=== PATIENT | female | born 1990 | race African-American/Black ===

== ENCOUNTER 2019-07-26 12:59 | Outpatient (CLI) | payer OTHER, SELFPAY ==
--- NOTE | 2019-07-30 12:20 | WPDHOLTEREM ---
Holter/Event Monitor Holter/Event Monitor Date of procedure: 07/26/19 Procedure Type: 48 hour holter monitor Indications: Palpitations Conclusion: 1. 48 hour holter monitor on 07/26/19. 2. Underlying rhythm is sinus rhythm. HR range 44-194 bpm; average HR 73 bpm. The fastest HR at 194 bpmis probably sinus or atrial tachycardia with significant artifact was at 16:06 3. There are 13 premature supraventricular complexes. No supraventricular tachycardia. 4. There are 14 premature ventricular complexes. No ventricular tachycardia. 5. No sinoatrial or atrioventricular blocks. No significant pauses greater than 2 seconds. 6. Patient reports chest tightness, throat tightness, palpitations and chest pain which demonstrate Sinus rhythm, HR range 69-136 bpm.
== END 2019-07-26 13:00 | disposition home or self-care (01) ==
LOC: ANHCARD 13:01
PROVIDERS: Visit Provider Internal Medicine Cardiovascular Disease
DX: R00.2 Palpitations (principal)
CPT/HCPCS: 93225; 93226

== ENCOUNTER 2019-08-22 15:46 | Outpatient (RCR) | payer OTHER, SELFPAY ==
[2019-08-20 17:31] LABS: Beta HCG Quantitative 60.53 mIU/ML
[2019-08-22] MEDS: RHO(D) IMMUNE GLOBULIN 300 MCG SYRINGE IM (16:21)
== END 2019-11-18 23:59 | disposition home or self-care (01) ==
LOC: ANHLAB 15:46
PROVIDERS: Visit Provider Obstetrics & Gynecology
DX: O20.0 Threatened abortion (principal); O36.0130 Maternal care for anti-D [Rh] antibodies, third trimester, not applicable or unspecified; Z36.89 Encounter for other specified antenatal screening; Z3A.00 Weeks of gestation of pregnancy not specified
CPT/HCPCS: 36415; 84702; 85461; 90384; 96372; J2790

== ENCOUNTER → 2020-02-18 09:04 | Outpatient (CLI) | payer OTHER, SELFPAY ==
--- NOTE | ~2020-02-18 | XR_ITS ---
XR UGIAC wo kub DATE: 02/18/2020 09:54 INDICATION: Gastroesophageal reflux. Abdominal bloating and pressure. TECHNIQUE: Air-contrast upper gastrointestinal series 1.2 minutes fluoroscopy time 9.602 DAP COMPARISON: None FINDINGS: There is normal deglutition and esophageal peristalsis. No stricture, mucosal fold thickeni ng, erosion, ulceration or intraluminal mass lesion or diverticulum of the esophagus or stomach or du odenum is detected. No hiatal hernia is observed. No gastroesophageal reflux was noted. The proximal small bowel mucosal pattern is normal. IMPRESSION: Normal examination Reviewed, dictated and finalized at Location A. Reviewed, dictated and finalized at location B. PUNCH PRESS OPERATOR IMPRESSION: Normal examination
== END ==
PROVIDERS: PCP Emergency Medicine; Visit Provider Emergency Medicine
DX: K21.9 Gastro-esophageal reflux disease without esophagitis (principal)
CPT/HCPCS: 74246

== ENCOUNTER 2021-09-19 10:44 | Emergency (ER) | payer OTHER, SELFPAY ==
[2021-09-19 10:52] VITALS: BP 133/85; PULSE 66; RESP 16; TEMP 36.3; O2SAT 100
--- NOTE | 2021-09-19 11:30 | ED.EYEPROB ---
HPI - Eye Problem General Chief complaint: Eye Problems Stated complaint: Eye Pain Time Seen by Provider: 09/19/21 11:23 Source: patient Mode of arrival: ambulatory Limitations: no limitations History of Present Illness HPI Narrative: Patient presents today complaining of bilateral eye redness, crusting, and swelling with some occasional watering. Symptoms began yesterday with the swelling starting today. Denies itching or pain. She is also had some allergy symptoms to include congestion and rhinorrhea recently for which she takes Zyrtec. Denies vision changes. She has tried no grxt-oaf-rxfdowm treatment for her eye symptoms prior to arrival. Related Data Home Medications Medication Instructions Recorded Confirmed levonorgestrel-ethinyl estradiol 1 tablet PO DAILY 07/24/19 09/19/21 0.1 mg-20 mcg tablet (Lutera (28)) Allergies Allergy/AdvReac Type Severity Reaction Status Date / Time No Known Allergies Allergy Unknown Verified 09/19/21 10:45 Review of Systems Review of Systems: CONSTITUTIONAL: Denies body aches, fever, chills, or sweats. EYES: Denies visual changes. +Bilateral eyelid swelling, redness, watering ENT: Denies rhinorrhea, congestion, sore throat, or otalgia. CARDIOVASCULAR: Denies chest pain, palpitations, or edema. RESPIRATORY: Denies cough or dyspnea. GASTROINTESTINAL: Denies abdominal pain, nausea, vomiting, or diarrhea. GENITOURINARY: Denies dysuria or hematuria. SKIN: Denies rash, itching, or wounds. MUSCULOSKELETAL: Denies back pain, joint pain, or myalgia. NEUROLOGIC: Denies headache, numbness, tingling, or weakness. PSYCH: Denies depression or anxiety. PMFSH Comments At time of signature, I have reviewed and agree with nursing past medical, surgical, social and family history unless otherwise noted. Please see nursing chart for further information. There is no relevant family history pertinent to the presenting complaint Exam Narrative: GENERAL: Well-appearing, well-nourished, and in no acute distress. HEAD: Normocephalic, atraumatic. EYES: EOMI. PERRL. Bilateral injected conjunctiva. Bilateral Upper and lower eyelid swelling. Lashes normal. Slight watery discharge bilaterally. ENT: Mucous membranes pink and moist. Nares Congested. NECK: Normal AROM. CHEST: No respiratory distress. EXTREMITIES: Normal range of motion. No edema. SKIN: Warm, dry, no rash. Capillary refill normal. Normal skin turgor. NEURO: No focal deficits. Alert and oriented x3. Gait steady. PSYCH: Normal affect. No signs of depression or anxiety. Course Course Level of Care: Express Care Visit Vital Signs Vital signs: Vital Signs Temperature 97.4 F L 09/19/21 10:52 Pulse Rate 66 09/19/21 10:52 Respiratory Rate 16 09/19/21 10:52 Blood Pressure 133/85 09/19/21 10:52 Pulse Oximetry 100 09/19/21 10:52 Oxygen Delivery Room Air 09/19/21 10:52 Temperature 97.4 F L 09/19/21 10:52 Pulse Rate 66 09/19/21 10:52 Respiratory Rate 16 09/19/21 10:52 Blood Pressure 133/85 09/19/21 10:52 Pulse Oximetry 100 09/19/21 10:52 Oxygen Delivery Room Air 09/19/21 10:52 Reviewed. Pt has been instructed to follow up with her PCP regarding her elevated blood pressure today. MDM - Eye Problem Differential Diagnosis Differential diagnosis: Likely corneal abrasion, conjunctivitis and periorbital cellulitis Critical Care Time Critical Care Time Critical Care Time: No Discharge Plan Discharge Clinical Impression: Acute allergic conjunctivitis of both eyes Patient Disposition: Home, Self-Care Condition: Stable Instructions: Conjunctivitis (ED) Additional Instructions: Your symptoms are likely due to pinkeye due to allergies. Please use an antihistamine eyedrop such as Zaditor as directed on the box. Use a cool compress on your eyes to help with swelling of the eyelids. Continue your Zyrtec. Follow-up with your doctor in 1 week if symptoms are not improving. Pr
== END 2021-09-19 11:41 | disposition home or self-care (01) ==
PROVIDERS: Emergency Provider Nurse Practitioner; PCP Emergency Medicine
DX: H10.13 Acute atopic conjunctivitis, bilateral (principal)
CPT/HCPCS: 99212; G0463

== ENCOUNTER 2022-03-25 17:22 | Outpatient (CLI) | payer OTHER, SELFPAY ==
[2022-03-26] MEDS: RHO(D) IMMUNE GLOBULIN 300 MCG/2 ML SYRINGE IM (07:32)
== END 2022-03-25 17:23 | disposition home or self-care (01) ==
LOC: ANHLAB 17:25
PROVIDERS: PCP Emergency Medicine; Visit Provider Obstetrics & Gynecology
DX: O20.0 Threatened abortion (principal)
CPT/HCPCS: 36415; 85461; 86850; 86900; 86901; 90384; 96372; J2790

== ENCOUNTER 2023-02-10 13:51 | Outpatient (CLI) | payer OTHER, SELFPAY | END 2023-02-10 13:52 | disposition home or self-care (01) | LOC: ANHLAB 13:56 | PROVIDERS: PCP Emergency Medicine; Visit Provider Obstetrics & Gynecology | DX: O20.0 Threatened abortion (principal); Z3A.00 Weeks of gestation of pregnancy not specified | CPT/HCPCS: 36415; 84702 ==

== ENCOUNTER 2023-02-10 13:58 | Outpatient (RCR) | payer OTHER, SELFPAY ==
[2023-02-10] MEDS: RHO(D) IMMUNE GLOBULIN 300 MCG/2 ML SYRINGE IM (19:14)
== END 2023-05-11 23:59 | disposition home or self-care (01) ==
LOC: ANHLAB 13:58
PROVIDERS: PCP Emergency Medicine; Visit Provider Obstetrics & Gynecology
DX: O20.0 Threatened abortion (principal); Z29.13 Encounter for prophylactic Rho(D) immune globulin; O36.0190 Maternal care for anti-D [Rh] antibodies, unspecified trimester, not applicable or unspecified; Z3A.00 Weeks of gestation of pregnancy not specified
CPT/HCPCS: 36415; 84702; 85461; 86850; 86900; 86901; 90384; 96372; J2790

== ENCOUNTER 2023-02-12 13:17 | Outpatient (CLI) | payer OTHER, SELFPAY | END 2023-02-12 13:18 | disposition home or self-care (01) | LOC: ANHLAB 13:20 | PROVIDERS: PCP Emergency Medicine; Visit Provider Obstetrics & Gynecology | DX: O20.0 Threatened abortion (principal); Z3A.00 Weeks of gestation of pregnancy not specified | CPT/HCPCS: 36415; 84702 ==

== ENCOUNTER 2023-03-22 01:57 | Day surgery (SDC) | payer OTHER, SELFPAY ==
[2023-03-21 11:44] VITALS: BMI 25.4
--- NOTE | 2023-03-21 11:48 | PC.NURSE ---
Report to the Outpatient Waiting Room, entrance under the green pavilion located off [facility], at time 1200 on date 03/22/23. Planned Procedure Time: 1400. Time changes happen often and if your time is changed the preop area will call you the afternoon before. - You and your visitor will be asked to self-screen and do not enter if you have any COVID symptoms. - A mask is optional within the hospital at this time. Patients may have clear liquids (water, carbonated beverages, clear teas, apple juice) until 3 hours prior to surgery with a maximum of 20 ounces. - No food from midnight until time of surgery Take the following medications with a SIP of water the morning of surgery: N/A DO NOT STOP ANY OF YOUR OTHER PRESCRIPTION MEDICATIONS PRIOR TO SURGERY ?EXCEPT THE FOLLOWING Medications to discontinue per physician: N/A Date to take last dose: N/A Please no make-up, nail swedish, hairspray, perfume, deodorant, or body powder the day of surgery. No jewelry (including any body piercings) or valuables the day of surgery, leave them at home. Please take a shower or bath the night before, or the morning of, surgery with an antibacterial soap. Wear comfortable, loose fitting clothing. Children are encouraged to wear pajamas. - Jewelry must be removed prior to entering the operating room. Rings and piercings that are not removed may be cut off. - The hospital will not accept responsibility for valuables. - Please leave all valuables, including medications, at home the day of surgery. If you are going home after surgery, a licensed otr flatbed driver must drive you home. - NO public transportation without another adult if you receive anesthesia. - We recommend that an adult stay with you for 24 hours following discharge. - We also recommend that you do not drive, make important decision, drink alcoholic beverages, or take any drugs that were not prescribed by your health care provider for at least 24 hours after your discharge time. Follow any additional instructions given to you from your surgeon. If you or anyone in your household have experienced Covid symptoms in the past week, please notify your surgeon or the nurse liaison at the phone number below for possible testing. Telephone instructions given to PT - GREGORY WALDROP and asked if any additional questions and then verbalized understanding. Patient advised to call surgeon office or pre surgery nurse liaison [phone] if any additional questions.
[2023-03-22 13:09] VITALS: BP 118/77; PULSE 72; RESP 14; TEMP 37; O2SAT 98
[2023-03-22] MEDS: ACETAMINOPHEN 500 MG TABLET 1000 MG PO (13:13)
[2023-03-22] MEDS: LACTATED RINGERS 1,000 ML 30 ML IV CONT (13:13)
--- NOTE | 2023-03-22 13:24 | P.PNAN_ITS ---
Anes - Initial Pre Proc Eval Procedure: Operation Date: 03/22/23 14:00 Proposed Procedures p Suction Dilation and Curettage - Dm Roche MD Date/Time: 03/22/23 13:24 Surgeon: Dm Roche MD Pre Op Diagnosis: Missed AB Patient Data Age: 32 Gender: F Height: 1.52 m Weight: 62.8 kg Last Vital Signs Temp 37.0 C 03/22/23 13:09 Pulse 72 03/22/23 13:09 Resp 14 03/22/23 13:09 BP 118/77 03/22/23 13:09 Pulse Ox 98 03/22/23 13:09 O2 Del Method Room Air 03/22/23 13:09 Allergies Allergy/AdvReac Type Severity Reaction Status Date / Time No Known Allergies Allergy Unknown Verified 03/22/23 13:13 Home Medications Medication Instructions Recorded Confirmed Type No Home Medications 03/21/23 03/21/23 History Patient hx anesthesia problems: none Family hx anesthesia problems: none Results Review: All pre-operative results and documents have been reviewed as part of the pre- operative evaluation. [facility] Past Medical History Medical History (Updated 03/22/23 @ 13:24 by David Ruiz MD) BELLA on CPAP Social History Social History Smoking status: Never smoker Alcohol use details: WHEN NOT Substance use: never Substance use type: does not use Living arrangements: with family Spiritual care concerns: No Anes - Eval Final PreProcedure Day of Procedure 03/22/23 13:24 Patient weight: overweight Heart: regular rate and rhythm Lungs: clear to auscultation Airway: Mallampati scale class II Neurological: alert and oriented Last oral intake: >/= 8 hours ASA classification: II Emergent: no Anesthetic plan: proceed Anesthesia type and monitoring: general GIVS and standard monitoring Results Review: All pre-operative results and documents have been reviewed as part of the pre- operative evaluation. Informed Consent: The patient's anesthetic plan and its attendant risks and benefits were discussed with the patient/family/POA. Questions were solicited and answers provided to the satisfaction of the patient/family/POA.
--- NOTE | 2023-03-22 14:05 | PM.IMHP ---
H&P: HPI History of Present Illness Date/Time: 03/22/23 14:05 Chief Complaint: missed miscarriage Narrative: Patient presents for suction D&C indicated for missed miscarriage at 6 weeks. Patient was seen in office at 5 weeks gestation, embryo with +FHR was seen. On repeat US at 8 weeks, there was a size date discrepancy with FHR visualized, diagnosed of missed miscarriage. She denies heavy bleeding or cramping. Expectant vs medical vs surgical management was discussed with the patient and she elects for suction D&C with genetic evaluation of POC. No fevers, chills, abdominal pain, nausea, vomiting or diarrhea today. Review of Systems Review of Systems: All systems reviewed & are unremarkable except as noted in HPI and below PMFSH Past Medical History Medical History BELLA on CPAP Social History Social History Smoking status: Never smoker Alcohol use details: WHEN NOT Substance use: never Substance use type: does not use Living arrangements: with family Spiritual care concerns: No Meds Home Medications and Allergies Home Medications Medication Instructions Recorded Confirmed Type No Home Medications 03/21/23 03/21/23 History Allergies Allergy/AdvReac Type Severity Reaction Status Date / Time No Known Allergies Allergy Unknown Verified 03/22/23 13:13 Vital Signs Vital Signs - 24 hr 03/22/23 13:09 Temperature 98.6 F Pulse Rate 72 Respiratory Rate 14 Blood Pressure 118/77 Pulse Oximetry 98 Oxygen Delivery Room Air Exam Const: General: comfortable and no acute distress Eyes: General: appearance normal, both eyes and all related structures Neck: Neck: supple Resp: Effort & Inspection: normal respiratory effort Cardio: Rate: regular rate Skin: General skin exam: normal color Extrem: General: normal to inspection Psych: Mental Status: mental status grossly normal Assessment and Plan Assessment and plan (1) Missed : Code(s): O02.1 - Missed Status: Acute Assessment and Plan: diagnosed by size-date discrepancy, no FHR seen after previously visualized no cramping or bleeding expectant vs medical vs surgical management discussed with patient, r/b/a discussed and patient desires to proceed with suction D&C will send genetic analysis of POC
--- NOTE | 2023-03-22 14:08 | SUR.PREOP ---
per dr ortiz. pt does NOT need rhogam for this visit today.
--- NOTE | 2023-03-22 14:13 | WPDHPUPDATE1 ---
History and Physical Update Update Date/Time: 03/22/23 14:13 History and Physical has been reviewed, including an updated exam of the patient. There are NO changes in the patient's condition. Risks, benefits, and alternatives have been discussed and questions answered. Patient agrees to proceed with procedure.
[2023-03-22] MEDS: LIDO 1%/EPINEPHRINE 1:100,000 50 ML VIAL 10 ML INFILTRATE (14:18)
[2023-03-22 14:50] VITALS: BP 90/48; PULSE 103; RESP 20; O2SAT 98
--- NOTE | 2023-03-22 15:18 | W.PM.PROC2 ---
Procedure Note - Detailed Date of Procedure 03/22/23 Pre-op Diagnosis Missed AB Post-op Diagnosis Same Procedure Performed suction D&C Surgeon Dm Roche MD Anesthesia MAC Indications missed miscarriage at 6 weeks gestation Description of Procedure The patient was then taken to the operating room with IVFs running. She was placed in the dorsal supine position where she received MAC anesthesia without any difficulty.?? The patient was placed in the dorsal lithotomy position using j carlos stirrups. EUA revealed the above findings. She was then prepped and draped in a normal sterile fashion. A time-out procedure was performed and all members of the OR team agreed on the patient and plan. A bivalved speculum was then inserted into the patient's vagina.? The anterior lip of the cervix was grasped with a single tooth tenaculum. The cervical os was dilated using linh dilators to accommodate a 9mm curette.? The suction curette was tested outside the patient and found to be working properly.? The curette was then advanced into the intrauterine cavity and circumferentially removed.? All products of conception were removed until little tissue was seen passing through the tubing.? A sharp curettage was then performed until a gritty texture was noted.? The specimen was sent to pathology.? The single tooth tenaculum was removed from the anterior lip of the cervix and was hemostatic.? The bivalve speculum was removed.? The patient tolerated the procedure well.? Sponge, lap, needle, and instrument counts were correct Estimated Blood Loss 50 Pathology Yes Complications No immediate complications Condition Stable
[2023-03-22 15:20] VITALS: BP 91/53; PULSE 72; RESP 20; O2SAT 100
[2023-03-22] MEDS: DOXYCYCLINE HYCLATE 100 MG TABLET PO (15:35)
[2023-03-22 15:50] VITALS: BP 114/71; PULSE 67; RESP 20
[2023-03-22 16:10] VITALS: BP 123/68; PULSE 64; RESP 20
== END 2023-03-22 16:15 | disposition home or self-care (01) ==
PROVIDERS: PCP Nurse Practitioner Family; Visit Provider Obstetrics & Gynecology
PROC: (CPT 59820; principal; 2023-03-22 14:00)
DX: O02.1 Missed abortion (principal); G47.33 Obstructive sleep apnea (adult) (pediatric); Z99.89 Dependence on other enabling machines and devices
CPT/HCPCS: 59820; 36415; 85461; 86850; 86880; 86900; 86901; 86902; 88264; 88305; A9270; J1100; J2250; J2405; J2704; J3010; J7120

== ENCOUNTER 2023-04-29 11:07 | Outpatient (CLI) | payer OTHER, SELFPAY ==
--- NOTE | ~2023-04-29 | MR_ITS ---
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 TECHNIQUE: Magnetic resonance imaging (MRI) of the brain, brainstem, and internal auditory canals was performed without and with 12 mL MultiHance intravenous contrast. COMPARISON: None. FINDINGS: There is no intracranial hemorrhage, acute infarction, or abnormal intracranial mass lesion . The ventricles are normal in size. The paranasal sinuses are clear. There orbits are normal. The ma stoid air cells are normal. The internal auditory canals, inner ears, and tympanic cavities are isai l. IMPRESSION: 1. Normal brain. Reviewed, dictated and finalized at location A. IMPRESSION: 1. Normal brain.
== END 2023-04-29 11:08 ==
LOC: MICIMG 11:10
PROVIDERS: PCP Nurse Practitioner Family
DX: G47.419 Narcolepsy without cataplexy (principal)
CPT/HCPCS: 70553; A9577

== ENCOUNTER 2023-07-30 12:30 | Outpatient (CLI) | payer OTHER, SELFPAY | END 2023-07-30 12:31 | disposition home or self-care (01) | LOC: ANHLAB 12:32 | PROVIDERS: PCP Nurse Practitioner Family; Visit Provider Obstetrics & Gynecology | DX: N91.2 Amenorrhea, unspecified (principal) | CPT/HCPCS: 36415; 84702 ==

== ENCOUNTER 2024-01-10 18:33 | Outpatient (RCR) | payer OTHER, SELFPAY ==
[2024-01-09 12:51] LABS: Hematocrit 35.5 % (37.0-47.0); Hemoglobin 12.3 g/dL (12.0-15.0)
[2024-01-09 13:02] LABS: Glucose 1 Hour PP 50gm Dose 114 mg/dL
[2024-01-09 13:43] LABS: HIV 1/2 Ab P24 Ag Result Negative (Negative)
[2024-01-10] MEDS: RHO(D) IMMUNE GLOBULIN 300 MCG/2 ML SYRINGE IM (19:35)
== END 2024-04-08 23:59 | disposition home or self-care (01) ==
LOC: ANHLAB 18:33
PROVIDERS: Visit Provider Obstetrics & Gynecology
DX: O36.0130 Maternal care for anti-D [Rh] antibodies, third trimester, not applicable or unspecified (principal); Z36.89 Encounter for other specified antenatal screening
CPT/HCPCS: 36415; 82947; 85014; 85018; 85461; 86703; 86850; 86900; 86901; 90384; 96372; G0432; J2790

== ENCOUNTER 2024-04-07 19:14 | Inpatient (IN) | payer OTHER, SELFPAY ==
[2024-04-07] VITALS (73 sets, daily range): BP systolic 73–161; BP diastolic 30–95; PULSE 69–125; O2SAT 78–100; BMI 32.3
--- OUTSIDE RECORDS SUMMARY | 2024-04-07 19:26 | XMS_ITS | Clinical Summary ---
Author Organization [facility] Address [facility] [place] [address] Care Team Providers Care Mail Clerk Bills Name Role Phone Wally Kumar MD Primary Care Provider [phone] Allergies No known active allergies Medications Lessina 0.1-20 mg-mcg per tablet TK 1 T PO QD 03/20/2019 Active Active Problems Problem Noted Date Diagnosed Date Poor growth affecting management of mother in third trimester 12/25/2017 Overview (01/16/2018): 1. IUGR- -previously counseled regarding potential etiology and risks of IUGR - Twice weekly testing with NST/BPP - Weekly UA doppler - EFW every 3 weeks with MFM co-managed visit -Timing of delivery is dependent on gestational age, doppler studies and testing and will be decided as the progresses. In general, if there has been reassuring testing and interval growth above the 5th percentile we advocate for delivery between 38 -39 weeks. Maternal risk factors, growth below the 5th percentile, abnormal dopplers, oligohydramnios will decrease the gestational age recommended for delivery between 34-37 weeks. Discuss further after next growth. 01/16: Patient with appropriate interval growth today at 11th percentile, but this is only 1 growth ultrasound. Counseled for continuation of twice weekly testing and for delivery at 39 wee Assessment & Plan (01/16/2018 8:59 AM ROOF FITTER): Patient with appropriate interval growth today at 11th percentile, but this is only 1 growth ultrasound. Counseled for continuation of twice weekly testing and for delivery at 39 weeks Family history of sickle cell anemia 12/25/2017 Overview (12/26/2017): -FOB believes he is a carrier, but pt's Hgb Electrophoresis was normal Supervision of high risk in third trim bc 12/01/2017 Overview (01/16/2018): -Per Dr. Brown -Patient states that she passed her 3hr GTT Resolved Problems Problem Noted Date Diagnosed Date Resolved Date Microcephaly of fetus, fetus 1 12/02/2017 01/16/2018 Surgical History Surgery Date Site/Laterality Comments DILATION AND CURETTAGE, DIAGNOSTIC / THERAPEUTIC 02/15/2016 - 02/13/2017 [facility] Medical History Medical History Date Comments TB lung, latent Social History Tobacco Use Types Packs/Day Years Used Date Smoking Tobacco: Former Smokeless Tobacco: Never Comments:Quit this Alcohol Use Standard Drinks/Week Comments Yes 0 (1 standard drink = 0.6 oz pur e alcohol) sociially Personal Safety Answer Date Recorded Getting School Help Needed Not on file 04/30 Comments No Sex and Gender Information Value Date Recorded Sex Assigned at Not on file Legal Sex Female 11:26 AM CDT Gender Identity Not on file Sexual Orientation Not on file Obstetrics History Para Term AB IAB SAB Ectopic Multiple Livin g Live Births 2 0 0 1 1 Date Outcome GA Total Labor Labor/2nd/3rd Weight Sex Type Anes PTL Edith A1 A5 Name Clin 2017 SAB Last Filed Vital Signs Vital Sign Reading Time Taken Comments Blood Pressure 139/95 07/12/2019 4:09 PM CDT Pulse 67 07/12/2019 4:09 PM CDT Temperature 36.8 C (98.2 F) 07/12/2019 4:09 PM CDT Respiratory Rate 18 07/12/2019 4:09 PM CDT Oxygen Saturation 99% 07/12/2019 4:09 PM CDT Inhaled Oxygen Concentration - - Weight 54.2 kg (119 lb 6.4 oz) 07/12/2019 4:09 P M CDT Height - - Body Mass Index - - Plan of Treatment Not on file Insurance [facility] HMO/PPO Address: [address] [place] [address] CHOICE PLUS [facility] HMO/PPO Address: [address] [place] [address] Care Teams Mail Clerk Bills Relationship Specialty Start Date End Date Wally Kumar MD [address] [place] [address] PCP - General Family Medicine 04/26/19
--- OUTSIDE RECORDS SUMMARY | 2024-04-07 19:26 | XMS_ITS | Clinical Summary ---
Author Organization [facility] Address [address] [place] [address] Care Team Providers Care Dietetic Aide Name Role Phone Wally Kumar MD Primary Care Provider [phone] Source Comments [facility],non-owned Affiliates and Associated Physician Practices is amultiple site organization consisting of ambulatory clinics and hospital sitesin [place], [place], [place]. This disclosure is being madepursuant to the Care Everywhere program and may not contain all information available regarding this patient. Last updated 17.[facility] Allergies No known active allergies Medications * Be aware that medications may not be up to date on this document. Alwaysverify current medications with the patient. Medication Sig Dispensed Refills Start Date End Date Status fluticasone propionate (FLONASE) 50 MCG/ACT nasal spray Gore 2 sprays into the nose every 24 hours 07/22/2020 Active LESSINA-28 0.1-20 MG-MCG tablet Take 1 tablet by mouth once daily 01/27/2021 Active omeprazole (PRILOSEC) 20 MG capsule Take 1 (one) capsule by mouth 2 times daily, before breakfast and supper 30 capsule 3 02/18/2021 Active Active Problems Problem Noted Date Diagnosed Date Family history of sickle cell anemia 12/25/2017 Overview (02/18/2021): -FOB believes he is a carrier, but pt's Hgb Electrophoresis was normal Atypical squamous cells of u ndetermined significance (ASCUS) on Papanicolaou smear of cervix 07/21/2017 Immunizations Name Administration Dates Next Due INFLUENZA VACCINE, QUADR. (F LUZONE; FLULAVAL; FLUARIX; AFLURIA QUADRIVALENT; 6MO+), 0.5 ML (IIV4) 12/10/2017 TDAP (7yrs+) 12/10/2017 Family History Medical History Relation Name Comments Hypertension Father Relation Name Status Comments Brother Alive Father Alive Mother Alive Social History Tobacco Use Types Packs/Day Years Used Date Smoking Tobacco: Never Smokeless Tobacco: Never Alcohol Use Standard Drinks/Week Comments Yes 0 (1 standard drink = 0.6 oz pur e alcohol) occasional Sex and Gender Information Value Date Recorded Sex Assigned at Not on file Gender Identity Not on file Sexual Orientation Not on file Last Filed Vital Signs Vital Sign Reading Time Taken Comments Blood Pressure 127/86 02/18/2021 8:10 AM SAIL FINISHER HAND Pulse 77 02/18/2021 8:10 AM SAIL FINISHER HAND Temperature 37.9 C (100.3 F) 01/02/2021 4:50 PM SAIL FINISHER HAND Respiratory Rate 18 02/18/2021 8:10 AM SAIL FINISHER HAND Oxygen Saturation 100% 02/18/2021 8:10 AM SAIL FINISHER HAND Inhaled Oxygen Concentration - - Weight 60.3 kg (133 lb) 02/18/2021 8:10 AM SAIL FINISHER HAND Height 152.4 cm (5') 02/18/2021 8:10 AM SAIL FINISHER HAND Body Mass Index 25.97 02/18/2021 8:10 AM SAIL FINISHER HAND Plan of Treatment Health Maintenance Due Date Last Done Comments HIV SCREENING 2004 HEPATITIS C SCREENING 07/12/2007 HEPATITIS B VACCINE (1 of 3 - 19+ 3-dose series) 2008 PAP SMEAR 05/29/2023 05/28/2020, 05/28/2020, 05/28/2020 COVID-19 VACCINE (3 - 2023-2 5 season) 2023 05/20/2020, 04/28/2020 INFLUENZA VACCINE (#1) 2023 0, 12/10/2017 DEPRESSION SCREENING 02/15/2024 DTAP/TDAP/TD VACCINES (2 - T d or Tdap) 12/11/2027 12/10/2017 ZOSTER VACCINE (1 of 2) 07/17/2039 HIB VACCINE Aged Out No longer eligi ble based on patient's age to complete this topic HPV VACCINE Aged Out No longer eligi ble based on patient's age to complete this topic MENINGOCOCCAL (Group B) VACCINE Aged Out No longer eligible b ased on patient's age to complete this topic MENINGOCOCCAL VACCINE Aged Out No juaquin sav[place] eligible based on patient's age to complete this topic PNEUMOCOCCAL VACCINE Aged Out No long er eligible based on patient's age to complete this topic Care Teams Dietetic Aide Relationship Specialty Start Date End Date Wally Kumar MD PCP - General 02/10/18
--- OUTSIDE RECORDS SUMMARY | 2024-04-07 19:26 | XMS_ITS | Data Portability ---
Author Organization [facility] [place] Address [address] [place] [address] [place] [address] Care Team Providers Care Time Stamp Assembler Name Role Phone TINA [place] Primary Care Provider [phone] SIVA PIMENTEL Primary Care Provider Assessment No assessment recorded. Plan of Treatment Reminders Order Date Submit Date Provider Last Modified By Organization Details Last Modified Time Details Appointments INDUCTION 2024 05:00A Nia RODRIGUEZ MD Not available Not available Not available Lab None recorded. Referral None recorded. Procedures None recorded. Surgeries None recorded. Imaging non-stres s test 2024 025 [email or web address] [address], [address], [place], [address], 04/02/2024 11:17:38 Medication Orders None recorded. Patient TargetsNo targets recorded. Patient InstructionsNo instructions recorded. Reason for Referral None Reported. Results Created Date Observation Date Name Description Value Unit Range Abnormal Flag Note LastModifiedBy Organization Detail LastModifiedTime 03/06/1903/06/2024 CULTU RE: GROUP B STREP SCREE N, REFLE X SUSCE PTIBI LITY result report SEE RESULT S BELOW Test: Cultu re: Group B Strep , Refle x Susce ptibi lity ([facility] ) Speci men Sourc e: Vagin a/Rec vilma Speci men Type: Vagin al/Re ctal Speci men Date: 2024 1402 Resul t Date: 2024 1357 Resul t Statu s: Final resul t Abnor mal: No Resul ting Lab: [facility] [address] [facility] [address] Tel: CULTU RE ----- ----- ----- --- No Group B strep isola deejay at 2 days (akil ctive broth enhan cemen t) Not Available [facility] (Lab) [address], [place], [address], 03/09/2024 15:00:47 04/02/19 25 04/02/2024 non-s tress test No observ ation record ed. [id number] [facility] [address], [place], [address], 04/02/2024 11:14:01 Result Notes None recorded. Problems Name Problem SNOMED Code Status Onset Date Resolution Date Notes Provider Name and Address Organization Details Recorded Time finding Completed 201705/28/2020 Matern care for oth or susp poor fetl grth, third tri, unsp;Rec orded Elsewher e: No [facility] S ource: EHR Technician Automatic sari: N Practi ce ID: 0001 Mason lable Time: 09:00:00 AM Chen Garcia MD [address], [place], [address], [facility] 14:09:[address] Concept Completed 201905/28/2020 Encntr for stage technician exam (general ) (routine ) w/o abn findings ;Recorde d Elsewher e: No Locat ion: [facility] S ource: EHR Technician Automatic sari: N Practi ce ID: 0001 Mason lable Time: 08:15:00 AM hCen Garcia MD [address], [place], [address], [facility] 14:10:51 Gestatio n period, 29 weeks [id number] Completed 201705/28/2020 29 weeks gestatio n of pregnanc y;Record ed Elsewher e: No Locat ion: [facility] S ource: EHR Technician Automatic sari: N Practi ce ID: 0001 Mason lable Time: 09:45:00 AM Chen Garcia MD [address], [place], [address], [facility] 14:09:55 Infectio n screenin g Completed 201605/28/2020 Encounte r for screenin g for oth infec/pa rastc diseases ;Recorde d Elsewher e: No [facility] S ource: EHR Technician Automatic sari: N Practi ce ID: 0001 Mason lable Time: 11:00:00 AM Chen Garcia MD [address], [place], [address], [facility] 14:10:[address] Concept Completed 201705/28/2020 Matern care for abnlt fetl hrt rate or rhym, 3rd tri, unsp;Rec orded Elsewher e: No Locat ion: [facility] S ource: EHR Technician Automatic sari: N Practi ce ID: 0001 Mason lable Time: 04:00:00 PM Chen Garcia MD [address], [place], [address], [facility] 14:10:48 Gestatio n period, 35 weeks [id number] Completed 201705/28/2020 35 weeks gestatio n of pregnanc y;Record ed Elsewher e: No [facility]: EHR Technician Automatic sari: N Practi ce ID: 0001 Mason lable Time: 02:30:00 PM Chen Garcia MD [address], [place], [address], [facility] 04/14/202 1 14:10:07 Atypical squamous cells of undeterm ined signific ance on cervical Papanico laou smear [id number] Active 2017 Atyp squam cell of undet signfc cyto smr crvx (ASC-US) ;Recorde d Elsewher e: No Locat ion: [facility] S ource: EHR Technician Automatic sari: N Santati ce ID: 0001 Mason lable Time: 03:35:48 PM Not Available [facility] 0 16:29:11 Human papillom avirus deoxyrib onucleic acid detected , high risk on cervical specimen [id number] Active 2016 Cervical high risk HPV DNA test positive ;Recorde d Elsewher e: No Locat ion: [facility] S ource: EHR Technician Automatic sari: N Santati ce ID: 0001 Mason lable Time: 04:00:00 PM Not Available [facility] 0 16:29:11 Acute vaginiti s [id number] Completed 201605/28/2020 Acute vaginiti s;Record ed Elsewher e: No Locat ion: [facility] S ource: EHR Technician Automatic sari: N Floridalma ce ID: 0001 Mason lable Time: 10:45:[address] MD [address], [place], [address], [facility] 1 14:09:15 Normal pregnanc y in multigra gibson [id number] 73501 Completed 201705/28/2020 Encounte r for suprvsn of normal pregnanc y, second trimeste r;Record ed Elsewher e: No Locat ion: [facility] S ource: EHR Technician Automatic sari: N Floridalma ce ID: 0001 Mason lable Time: 10:00:00 AM Chen Garcia MD [address], [place], [address], [facility] 1 14:10:28 Gestatio n period, 27 weeks [id number] Completed 201705/28/2020 27 weeks gestatio n of pregnanc y;Record ed Elsewher e: No Locat ion: [facility] S ource: EHR Technician Automatic sari: N Practi ce ID: 0001 Mason lable Time: 08:30:00 AM Chen Garcia MD [address], [place], [address], [facility] 14:09:51 Gestatio n period, 36 weeks [id number] Completed 201705/28/2020 36 weeks gestatio n of pregnanc y;Record ed Elsewher e: No [facility] S ource: EHR Technician Automatic sari: N Practi ce ID: 0001 Mason lable Time: 08:00:00 AM Chen Garcia MD [address], [place], [address], [facility] 14:10:09 Gestatio n period, 38 weeks [id number] Completed 201705/28/2020 38 weeks gestatio n of pregnanc y;Record ed Elsewher e: No [facility] S ource: EHR Technician Automatic sari: N Santati ce ID: 0001 Mason lable Time: 08:30:00 AM Chen Garcia MD [address], [place], [address], [facility] 14:10:13 Gestatio n period, 32 weeks [id number] Completed 201705/28/2020 32 weeks gestatio n of pregnanc y;Record ed Elsewher e: No [facility] S ource: EHR Technician Automatic sari: N Practi ce ID: 0001 Mason lable Time: 03:15:00 PM Chen Garcia MD [address], [place], [address], [facility] 14:10:01 Antenata l screenin g Completed 201705/28/2020 Encounte r for antenata l screenin g for nuchal transluc ency;Rec orded Elsewher e: No Locat ion: [facility] S ource: EHR Technician Automatic sari: N Santati ce ID: 0001 Mason lable Time: 08:15:[address] MD [address], [place], [address], [facility] 09:56:31 Malforma tion of central nervous system of fetus [id number] 107 Completed 201705/28/2020 Maternal care for (suspect ed) cnsl malform in fetus, unsp;Rec orded Elsewher e: No [facility]at [facility] S ource: EHR Technician Automatic sari: N Floridalma ce ID: 0001 Mason lable Time: 08:30:[address] MD [address], [place], [address], [facility] 14:10:26 Gestatio n period, 28 weeks [id number] Completed 201705/28/2020 28 weeks gestatio n of pregnanc y;Record ed Elsewher e: No [facility] S ource: EHR Technician Automatic sari: N Floridalma ce ID: 0001 Mason lable Time: 09:00:00 AM Chen Garcia MD [address], [place], [address], [facility] 14:09:53 Gestatio n period, 39 weeks [id number] Completed 201705/28/2020 39 weeks gestatio n of pregnanc y;Record ed Elsewher e: No [facility] S ource: EHR Technician Automatic sari: N Floridalma ce ID: 0001 Mason lable Time: 08:00:[address] MD [address], [place], [address], [facility] 14:10:15 Pregnanc y, childbir th and puerperi um finding Completed 201705/28/2020 Encntr for suprvsn of normal first preg, second trimeste r;Record ed Elsewher e: No Locat ion: [facility] S ource: EHR Technician Automatic sari: N Santati ce ID: 0001 Mason lable Time: 04:30:00 PM Chen Garcia MD [address], [place], [address], [facility] 14:10:35 Vaginola bial hernia Completed 201705/28/2020 Other specifie d noninfla mmatory disorder s of vagina;R ecorded Elsewher e: No Locat ion: [facility] S ource: EHR Technician Automatic sari: N Santati ce ID: 0001 Mason lable Time: 03:30:00 PM Chen Garcia MD [address], [place], [address], [facility] 14:11:21 Screenin g for malignan t neoplasm of cervix Completed 201605/28/2020 Encounte r for screenin g for malignan t neoplasm of cervix;R ecorded Elsewher e: No Locat ion: [facility] S ource: EHR Technician Automatic sari: N Floridalma ce ID: 0001 Mason lable Time: 04:00:00 PM Chen Garcia MD [address], [place], [address], [facility] 14:10:38 Gestatio n period, 8 weeks [id number] Completed 201705/28/2020 8 weeks gestatio n of pregnanc y;Record ed Elsewher e: No Locat ion: [facility] S ource: EHR Technician Automatic sari: N Practi ce ID: 0001 Mason lable Time: 09:00:00 AM Chen Garcia MD [address], [place], [address], [facility] 14:10:17 Syphilis test finding [id number] Completed 201605/28/2020 Encntr screen for infectio ns w sexl mode of transmis s;Record ed Elsewher e: No Locat ion: [facility] S ource: EHR Technician Automatic sari: N Practi ce ID: 0001 Mason lable Time: 03:30:00 PM Chen Garcia MD [address], [place], [address], [facility] 14:11:01 Gestatio n period, 30 weeks [id number] Completed 201705/28/2020 30 weeks gestatio n of pregnanc y;Record ed Elsewher e: No Locat ion: [facility] S ource: EHR Technician Automatic sari: N Santati ce ID: 0001 Mason lable Time: 08:00:00 AM Chen Garcai MD [address], [place], [address], [facility] 14:09:57 Educatio n Completed 201805/28/2020 Encounte r for other general counseli ng and advice on contrace ption;Re corded Elsewher e: No Locat ion: [facility] S ource: EHR Technician Automatic sari: N Santati ce ID: 0001 Mason lable Time: 08:30:00 AM Chen Garcia MD [address], [place], [address], [facility] 14:09:[address] Concept Completed 201705/28/2020 Matern care for abnlt fetl hrt rate or rhym, 2nd tri, unsp;Rec orded Elsewher e: No Locat ion: [facility] S ource: EHR Technician Automatic sari: N Santati ce ID: 0001 Mason lable Time: 09:45:00 AM Chen Garcia MD [address], [place], [address], [facility] [address] 14:10:[address] Concept Completed 201505/28/2020 Encntr for general adult medical exam w/o abnormal findings ;Recorde d Elsewher e: No Locat ion: [facility] S ource: EHR Technician Automatic sari: N Santati ce ID: 0001 Mason lable Time: 11:30:00 AM Chen Garcia MD [address], [place], [address], [facility] 14:10:50 Gestatio n period, 24 weeks [id number] Completed 201705/28/2020 24 weeks gestatio n of pregnanc y;Record ed Elsewher e: No Locat ion: [facility] S ource: EHR Technician Automatic sari: N Floridalma ce ID: 0001 Mason lable Time: 08:30:00 AM Chen Garcia MD [address], [place], [address], [facility] 1 14:09:48 Generali zed hyperhid rosis [id number] Completed 201605/28/2020 Excessiv e sweating ;Recorde d Elsewher e: No Locat ion: [facility] S ource: EHR Technician Automatic sari: N Floridalma ce ID: 0001 Mason lable Time: 08:45:00 AM Chen Garcia MD [address], [place], [address], [facility] 1 14:09:43 Uterine leiomyom a [id number] Active 2019 Chen Garcia MD [address], [place], [address], [facility] 3 09:06:04 Contrace ption care manageme nt Completed 201805/28/2020 Encounte r for contrace ptive manageme nt, unspecif ied;Kavon rded Elsewher e: No [facility]: EHR Technician Automatic sari: N Santati ce ID: 0001 Mason lable Time: 10:45:00 AM Chen Garcia MD [address], [place], [address], [facility] 14:09:32 Gestatio n period, 37 weeks [id number] Completed 201705/28/2020 37 weeks gestatio n of pregnanc y;Record ed Elsewher e: No Locat ion: [facility] S ource: EHR Technician Automatic sari: N Santati ce ID: 0001 Mason lable Time: 09:00:00 AM Chen Garcia MD [address], [place], [address], [facility] 14:10:11 Antenata l screenin g for malforma tion Completed 201705/28/2020 Encounte r for antenata l screenin g for malforma tions;Re corded Elsewher e: No Locat ion: [facility] S ource: EHR Technician Automatic sari: N Santati ce ID: 0001 Mason lable Time: 03:30:00 PM Chen Garcia MD [address], [place], [address], [facility] 14:09:17 Gestatio n less than 9 weeks [id number] Completed 201705/28/2020 Less than 8 weeks gestatio n of pregnanc y;Record ed Elsewher e: No [facility]: EHR Technician Automatic sari: N Practi ce ID: 0001 Mason lable Time: 04:00:00 PM Chen Garcia MD [address], [place], [address], [facility] 14:09:46 Pregnanc y test negative [id number] Completed 201805/28/2020 Encounte r for pregnanc y test, result negative ;Recorde d Elsewher e: No [facility] S ource: EHR Technician Automatic sari: N Practi ce ID: 0001 Mason lable Time: 10:45:00 AM Chen Garcia MD [address], [place], [address], [facility] 14:10:40 Gestatio n period, 33 weeks [id number] Completed 201705/28/2020 33 weeks gestatio n of pregnanc y;Record ed Elsewher e: No Locat ion: [facility] S ource: EHR Technician Automatic sari: N Practi ce ID: 0001 Mason lable Time: 08:00:00 AM Chen Garcia MD [address], [place], [address], [facility] 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 14:10:54 Gestatio n period, 34 weeks [id number] Completed 201705/28/2020 34 weeks gestatio n of pregnanc y;Record ed Elsewher e: No Locat ion: [facility] S ource: EHR Technician Automatic sari: N Practi ce ID: 0001 Mason lable Time: 10:30:[address] MD [address], [place], [address], [facility] 14:10:05 Speciali zed medical examinat ion Completed 201305/28/2020 Other specifie d chlamydi al diseases ;Recorde d Elsewher e: No Locat ion: [facility] S ource: EHR Technician Automatic sari: N Floridalma ce ID: 0001 Mason lable Time: 09:15:00 AM Chen Garcia MD [address], [place], [address], [facility] 14:10:59 Uterine fibroid complica ting antenata l care, baby not yet delivere d [id number] Completed 201705/28/2020 Maternal care for benign tumor of corpus uteri, first tri;Kavon rded Elsewher e: No Locat ion: [facility] S ource: EHR Technician Automatic sari: N Floridalma ce ID: 0001 Mason lable Time: 09:00:00 AM Chen Garcia MD [address], [place], [address], [facility] 14:11:13 Threaten ed miscarri age 54553773 Completed 201705/28/2020 Bleeding due to threaten ed ;Recorde d Elsewher e: No Locat ion: [facility] S ource: EHR Technician Automatic sari: N Floridalma ce ID: 0001 Mason lable Time: 11:06:00 AM Chen Garcia MD [address], [place], [address], [facility] 14:11:03 finding Completed 201705/28/2020 Matern care for oth or susp poor fetl grth, 2nd tri, unsp;Pra ctice ID: 0001 Chen Garcia MD [address], [place], [address], [facility] 14:09:37 Gestatio n period, 31 weeks [id number] Completed 10/29/ 2018 05/28/2020 31 weeks gestatio n of pregnanc y;Practi ce ID: 0001 Chen Garcia MD [address], [place], [address], [facility] 14:09:59 Pregnanc y detectio n examinat ion Completed 201705/28/2020 Encounte r for pregnanc y test, result positive ;Recorde d Elsewher e: No Locat ion: [facility] S ource: EHR Technician Automatic sari: N Practi ce ID: 0001 Mason lable Time: 08:30:00 AM Chen Garcia MD [address], [place], [address], [facility] 14:10:31 Vaginiti s in pregnanc y [id number] Completed 201705/28/2020 Infectio n oth prt genital tract in pregnanc y, unsp trimeste r;Practi ce ID: 0001 Chen Garcia MD [address], [place], [address], [facility] 14:11:16 Finding of contents of cervix 105597821 Completed 201705/28/2020 Weeks of gestatio n of pregnanc y not specifie d;Practi ce ID: 0001 Chen Garcia MD [address], [place], [address], [facility] 14:09:41 Complica tion of pregnanc y, childbir th and/or puerperi um [id number] Completed 201705/28/2020 Oth diseases and conditio ns compl preg/chl dbrth;Pr actice ID: 0001 Chen Garcia MD [address], [place], [address], [facility] 14:11:06 Pregnanc y, childbir th and puerperi um finding Completed 201705/28/2020 Oth pregnanc y related conditio ns, third trimeste r;Practi ce ID: 0001 Chen Garcia MD [address], [place], [address], [facility] 14:09:29 Secondar y amenorrh ea [id number] Completed 201705/28/2020 Secondar y amenorrh ea;Pract ice ID: 0001 Chen Garcia MD [address], [place], [address], [facility] 14:10:42 Single live [id number] Completed 201805/28/2020 Single live ;Re corded Elsewher e: No Locat ion: [facility] S ource: EHR Technician Automatic sari: N Floridalma ce ID: 0001 Mason lable Time: 01:30:00 PM Chen Garcia MD [address], [place], [address], [facility] 14:10:44 Venereal disease screenin g Completed 201305/28/2020 Screenin g examinat ion for venereal disease; Recorded Elsewher e: No Locat ion: [facility] S ource: EHR Technician Automatic sari: N Floridalma ce ID: 0001 Mason lable Time: 09:15:00 AM Chen Garcia MD [address], [place], [address], [facility] 14:11:25 Lacerati on of female perineum Completed 201705/28/2020 Second degree perineal lacerati on during delivery ;Practic e ID: 0001 Chen Garcia MD [address], [place], [address], [facility] 14:10:24 Pregnanc y 43975561 Active 2023 Mariaa Radha [facility] [place], [facility] 4 10:35:27 growth restrict ion 88245052 Active h/o IUGR antenata l testing @ 32wks- resolved 02/05 Florencia hearn, [facility] 4 23:11:33 growth restrict ion 64011570 Active h/o IUGR antenata l testing @ 32wks- resolved 02/05 Florencia hearn, [facility] 4 23:11:33 Problem Notes None recorded. Procedures Surgical History Date Name Laterality Status Provider Name and Address Organization Details Recorded Time 07/28/19 24 Date of Last Pap Smear completed Sussy Denise [facility] 11/18/2023 11:43:43 06/13/19 24 SIS completed PRASHANTH RODRIGUEZ MD [address], [place], [address], [facility] 06/13/2023 16:47:47 04/18/19 24 Colposcopy completed Mariaa Garcia [facility] 05/02/2023 17:23:06 04/19/19 19 Colposcopy completed Tracy Silva [facility] 12/31/2019 12:14:57 01/25/20 17 Colposcopy completed Tracy Silva [facility] 12/31/2019 12:14:51 Colposcopy completed Velia Xiao [facility] 07/28/2021 10:20:26 Imaging Results Imaging Date Name Status LastModified by Organiz ation Details LastModified Time 04/02/2024 non-stress test completed [email or web address] [facility] [address], [place], [address], 04/02/2024 11:14:01 Procedure Notes None recorded. Medical Equipment None Reported. Allergies No known drug allergies Medications Name Sig Start Date Stop Date Status Note LastModified by Organization Details LastModified Time amoxicill in 500 mg capsule TAKE ONE CAPSULE BY MOUTH THREE TIMES DAILY UNTIL ALL TAKEN 07/28 completed Not Available Not Available Not Available fluconazo le 150 mg tablet take 1 tablet by oral route every other days 12/13 completed Not Available Not Available Not Available tretinoin 0.025 % topical cream 05/28 completed Not Available Not Available Not Available Monistat 7 2 % vaginal cream INSERT ONE APPLICAT ORFUL VAGINALL Y AT BEDTIME FOR 7 DAYS 09/19 completed Not Available Not Available Not Available prednison e 20 mg tablet TAKE 1 TABLET BY MOUTH TWICE DAILY FOR 3 DAYS 07/28 completed Not Available Not Available Not Available spironola ctone 100 mg tablet TAKE 1 TABLET BY MOUTH DAILY 03/24 completed Not Available Not Available Not Available betametha sone, augmented 0.05 % topical cream 07/28 completed Not Available Not Available Not Available doxycycli ne hyclate 50 mg capsule TAKE 1 CAPSULE BY MOUTH TWICE DAILY 03/24 completed Not Available Not Available Not Available terconazo le 0.8 % vaginal cream insert 1 applicat orful by vaginal route every day at bedtime for 3 nights 12/13 completed Not Available Not Available Not Available metronida zole 500 mg tablet Take 1 tablet every 12 hours by oral route for 7 days. 01/16 completed Not Available Not Available Not Available omeprazol e 40 mg capsule,d elayed release TK 1 C PO QD AC 05/28 completed Not Available Not Available Not Available triamcino lone acetonide 0.1 % topical cream 05/28 completed Not Available Not Available Not Available pantopraz ole 20 mg tablet,de layed release 07/27 completed Not Available Not Available Not Available isoniazid 300 mg tablet 05/28 completed Not Available Not Available Not Available modafinil 200 mg tablet 08/21 completed Not Available Not Available Not Available tacrolimu s 0.1 % topical ointment APPLY TOPICALL Y TO THE AFFECTED AREA TWICE DAILY. RUB IN WELL 03/24 completed Not Available Not Available Not Available isoniazid 100 mg/mL injection solution inject 3 millilit er by intramus cular route every day 05/28 completed Prescrib ed Elsewher e: Yes Loca tion: Enedelia valentin [facility] M odify By: amy tyler DateTime : 03/14/19 04:15:00 PM Not Available Not Available Not Available omeprazol e 20 mg capsule,d elayed release TAKE 1 CAPSULE BY MOUTH TWICE DAILY BEFORE BREAKFAS T AND SUPPER 07/28 completed Not Available Not Available Not Available Drysol Dab-O-Mat ic 20 % topical solution apply 1 by Topical route every day 07/13 completed Prescrib ed Elsewher e: No Locat ion: Enedelia valentin [facility] M odify By: carmen tyler DateTime : 02/05/20 08:45:00 AM Not Available Not Available Not Available Vitamin B-6 50 mg tablet 05/28 completed Not Available Not Available Not Available fluticaso ne propionat e 50 mcg/actua tion nasal spray,terra pension SHAKE LIQUID AND USE 2 SPRAYS IN EACH NOSTRIL DAILY 08/21 completed Not Available Not Available Not Available amoxicill in 875 mg-potass ium clavulana te 125 mg tablet TAKE 1 TABLET BY MOUTH TWICE DAILY WITH THE MORNING AND EVENING MEAL FOR 10 DAYS 07/28 completed Not Available Not Available Not Available modafinil 100 mg tablet TAKE 1 TABLET BY MOUTH DAILY IN THE MORNING 07/27 completed Not Available Not Available Not Available clindamyc in 1 % lotion 01/16 completed Not Available Not Available Not Available Lessina 0.1 mg-20 mcg tablet TAKE 1 TABLET BY MOUTH EVERY DAY 03/24 completed Not Available Not Available Not Available azelaic acid 15 % topical gel APPLY TOPICALL Y TO THE AFFECTED AREA TWICE DAILY 03/06 completed Not Available Not Available Not Available isoniazid 12/13 completed Not Available Not Available Not Available Baby Aspirin active Not Available Not Available Not Available clindamyc in 1.2 % (1 % base)-priscila zoyl peroxide 5 % topical gel APPLY TOPICALL Y TO THE AFFECTED AREA TWICE DAILY 03/06 completed Not Available Not Available Not Available Flonase Allergy Relief active Not Available Not Available Not Available Gummies active Not Available Not Available Not Available Flublok Quad (PF) 180 mcg (45 mcg x 4)/0.5 mL IM syringe PHARMACY ADMINIST EREBurt 05/28 completed Not Available Not Available Not Available Vitals Date Recorded Body height Body mass index (BMI) Body weight Systolic blood pressure Diastolic blood pressure Provider Name and Address Organization Details Last Updated DateTime 03/14/2024 152.4 cm 31.4 kg/m2 19067.37 g 121 mm[Hg] 73 mm[Hg] [facility] 5 09:42:52 Date Recorded Body height Body mass index (BMI) Body weight Systolic blood pressure Diastolic blood pressure Provider Name and Address Organization Details Last Updated DateTime 03/21/2024 152.4 cm 31.4 kg/m2 26486.37 157 g 127 mm[Hg] 78 mm[Hg] [facility] 5 09:37:40 Date Recorded Body height Body mass index (BMI) Body weight Systolic blood pressure Diastolic blood pressure Provider Name and Address Organization Details Last Updated DateTime 03/28/2024 152.4 cm 32 kg/m2 88138.15 g 121 mm[Hg] 83 mm[Hg] Adeline Herring [facility] 5 09:32:46 Date Recorded Body height Body mass index (BMI) Body weight Systolic blood pressure Diastolic blood pressure Provider Name and Address Organization Details Last Updated DateTime 04/02/2024 152.4 cm 32 kg/m2 55161.15 g 121 mm[Hg] 77 mm[Hg] [facility] 5 11:08:09 Social History Question Answer Notes LastModified by Organizat ion Details LastModified Time Tobacco Smoking Status Never Smoker [facility] 02/10/2023 13:54:57 Do You Have An Advance Directive? No Information not available 07/28/2021 What Is Your Level Of Alcohol Consumption? Occasional [email or web address] Information not available 01/17/2020 How Many Years Have You Consumed Alcohol? 5 Information not available 07/28/2021 Are You Blind Or Do You Have Difficulty Seeing? No Information not available 07/28/2021 What Is Your Level Of Caffeine Consumption? None Information not available 07/28/2021 How Much Tobacco Do You Chew? None Information not available 07/28/2021 In The 14 Days Before Symptom Onset, Have You Had Close Contact With A Laboratory-confir med COVID-19 While That Case Was Ill? No Information not available 07/28/2021 In The 14 Days Before Symptom Onset, Have You Had Close Contact With A Person Who Is Under Investigation For COVID-19 While That Person Was Ill? No Information not available 07/28/2021 Have You Been To An Area Known To Be High Risk For COVID-19? No Information not available 07/28/2021 Are You Currently Employed? Yes [email or web address] Information not available 03/14/2024 Are You Deaf Or Do You Have Serious Difficulty Hearing? No Information not available 07/28/2021 What Type Of Diet Are You Following? REGULAR Information not available 07/28/2021 Do You Or Have You Ever Used E-cigarettes Or Vape? Never Used Electronic Cigarettes [email or web address] Information not available 02/10/2023 What Is The Highest Grade Or Level Of School You Have Completed Or The Highest Degree You Have Received? 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 No Information not available 07/28/2021 What Was The Date Of Your Most Recent Tobacco Screening? 01/17/2020 [email or web address] Information not available 02/10/2023 Do You Use Protection During Sex? Usually Information not available 07/28/2021 Do You Use Your Seat Belt Or Car Seat Routinely? Yes Information not available 07/28/2021 Are You Sexually Active? Yes [email or web address] Information not available 03/14/2024 Do You Have Smoke And Carbon Monoxide Detectors In Your Home? Yes Information not available 07/28/2021 Do You Or Have You Ever Used Smokeless Tobacco? Never Used Smokeless Tobacco [email or web address] Information not available 02/10/2023 How Much Tobacco Do You Smoke? No [email or web address] Information not available 01/17/2020 Do You Feel Stressed (tense, Restless, Nervous, Or Anxious, Or Unable To Sleep At Night)? [id number] Information not available 07/28/2021 Do You Use Any Illicit Or Recreational Drugs? No Information not available 07/28/2021 Do You Use Sunscreen Routinely? Yes Information not available 07/28/2021 Have You Used IV Drugs? No Information not available 07/28/2021 Sex: Unknown Functional Status Question Answer Note LastModified by Organizat ion Details LastModified Time Do you have difficulty walking or climbing stairs? No [email or web address] Information not available 02/10/2023 Are you able to walk? [email or web address] Information not available 07/28/2021 Are you able to care for yourself? Yes [email or web address] Information not available 02/10/2023 Do you have difficulty dressing or bathing? No Information not available 02/10/2023 What is your exercise level? Heavy Information not available 07/28/2021 Mental Status None recorded. Family History Relationship Description Onset Age of this Age Resolved Age Notes LastModified by Organization Details LastModified Time Maternal Grandmother Diabetes mellitus [email or web address] Not available 2019 10:40:53 Paternal Grandfather Diabetes mellitus [email or web address] Not available 2019 10:40:53 Paternal Aunt Diabetes mellitus [email or web address] Not available 2019 10:40:53 Maternal Aunt Diabetes mellitus [email or web address] Not available 2019 10:40:53 Maternal Uncle Diabetes mellitus [email or web address] Not available 2019 10:40:53 Paternal Uncle Diabetes mellitus [email or web address] Not available 2019 10:40:53 Medical History Condition Response Dermatologic Disorders Y Acid Reflux (GERD) Y History of STI Y History of abnormal pap Y Gynecological History Statement/Question Response Abnormal Pap Y Flow Moderate Date of LMP 06/27/2023 N Was last menstrual period normal Y STIs/STDs Y HPV Vaccine N Colposcopy 04/18/2023 Duration of Flow (days) 2 Current Control Method Sexually Active? Y Menses Monthly Y Age of first menstrual cycle 9 Date of Last Pap Smear 07/28/2023 Sexual Problems? N LMP Approximate N Obstetrics History GPAL:G 5 P 1 0 3 1 Type Value Full Term 1 Spontaneous 3 Living 1 Total 5 Past Encounters Encounter ID Performer Location Encounter Start Date Encounter Closed Date Diagnosis/Indication Diagnosis SNOMED-CT Code Diagnosis ICD10 Code Diagnosis Note [id number] Rosio Guadarrama [facility] [address],[place] [address] 08/16/2019 13:55:11 08/16/2019 14:50:04 Abnormal uterine bleeding 1418532856 9100 N93.9 Patient is here today with concerns of extended cycle bleeding on OCP despite good compliance . It is only random brownish spotting. Compliants & timely with OCP. Did start a new medication for facial acne within the last 3wks which is when this issue began. She is SA but no other sx's of . Agrees to UPT today. No pelvic pain No urinary sx's Neg N/V/D/F. Neg Vag d/c, itching, odor. UPT is faint positive. We agreed to serum HCG to confirm. Will call patient with blood work so we know if needs OB appt or if today's test is false positive. Time spent in visit is a total of 18 mins with at least 50% of visit consisting of counseling and review of plan of care. [id number] Kizzy Francismason [facility] [address],[place] [address] 12/12/2019 16:58:06 12/13/2019 10:44:18 Urinary tract infectious disease 10301704 N39.0 [id number] [facility] [address],[place] [address] 12/14/2019 16:14:46 12/17/2019 11:09:57 Vaginitis 82781939 N76.0 [id number] Emily Jayda [facility] [address],[place] [address] 01/14/2020 17:04:43 01/14/2020 17:42:09 Pain in pelvis 67133282 R10.2 [id number] Johanna Manrique [facility] [address],[place] [address] 01/17/2020 10:01:16 01/17/2020 10:51:24 Pain in pelvis 09804711 R10.2 [id number] Chen Garcia MD [facility] [address],[place] [address] 05/28/2020 09:37:25 05/31/2020 12:24:48 Gynecologic examination 64689569 Z01.419 Surveillan ce of oral contraception 782730990 Z30.41 Venereal d isease screening 359771508 Z11.3 [id number] TRAMAINE Swift [facility] [address],[place] [address] 07/28/2021 10:13:22 07/28/2021 11:42:54 Gynecologic examination 88870143 Z01.419 Take Calcium with Vitamin D 1200mg daily if not receiving in daily diet. It is strongly advised to have an annual flu shot and up can obtain at most pharmacies . If you have not had a TDap shot in the last 10 years you should obtain one as well. Discussed with patient & provided with informatio n regarding Gardisil vaccine to prevent the 4 strains for HPV that cause cervical cancer if under age 26. Encourage safe sexual practices, to use condoms and limit partners if not already in a monogamous relationsh ip. Do monthly self breast exams. Have mammogram yearly or every other year depending on family history. BRCA testing is now available for patients with strong genetic history of female cancer. If interested contact the office. Engage in daily exercise of low impact aerobic exercise 45-60 minutes 4-5 times weekly. Avoid tobacco and illicit drugs as well as using moderation with alcohol intake less than 1-2 8 oz beverages daily. This lifestyle behavior pattern will lead to less health conditions and longer life span. If BMI greater than 25 weight watchers or dietary consult advised. Patient received above instructio ns, and questions have been answered. If you have any questions please call or respond to this email. Patient was made aware of the patient portal and may obtain a paper copy of today's plan if desired. WWEHx of abnormal pap in 2018 - ASCUS, HR HPV (+)Last pap 2020 normalPap done todaySTI testing added to papBlood STI testing orderedUsi ng OCP for control, happy with this method. Is considerin g in the fall. Encouraged her to start vitamin now, ideal to start this 3 months prior to trying for . Patient agrees.She denies hx of DVT/PE, HTN, Liver disease, cancer, stroke/PR, or migraine with auraRisk and benefits of OCP discussed and accepted by patientRef ills sent to patient pharmacy x 12 monthsBP today 124/82UTD with PCPNo family hx of breast or ovarian cancerRTC in 1 year for WWE or sooner if needed Venereal d isease screening 538056114 Z11.3 Sexually t ransmitted infectious disease 5703675 A64 Contracept ion care management 862748593 Z30.9 [id number] TRAMAINE Swift [facility] [address],[place] [address] 03/24/2022 17:05:48 03/24/2022 18:12:04 Abnormal uterine bleeding 1210992093 9100 N93.9 test positive 316402004 Z32.01 UPT (+) todaySTI testing sentBhcg ordered, start daily PNV nowWe discussed (+) UPT, will reach out with bhcg result tomorrow and notify patient. If bhcg (+), will need to repeat in 48 hours.ED precaution s discussed Time spent in visit is a total of 30 mins with at least 50% of visit consisting of counseling and review of plan of care. [id number] Chen Garcia MD [facility] [address],[place] [address] 04/12/2022 17:06:35 04/13/2022 16:16:20 Recurrent miscarriage 932292948 N96 Uterine leiomyoma 597655 05 D25.9 [id number] Pamela Gruber [facility] [address],[place] [address] 04/21/2022 09:28:12 04/21/2022 10:14:28 Uterine leiomyoma 43707446 D25.9 [id number] Chen Garcia MD [facility] [address],[place] [address] 05/11/2022 16:05:54 05/12/2022 10:59:15 Past history of miscarriage 154791830 Z87.59 Uterine leiomyoma 252923 05 D25.9 [id number] TRAMAINE Swift [facility] [address] [address] 08/05/2022 16:32:04 08/05/2022 17:00:40 Gynecologic examination 01936846 Z01.419 Z11.51 Take Calcium with Vitamin D 1200mg daily if not receiving in daily diet. It is strongly advised to have an annual flu shot and up can obtain at most pharmacies . If you have not had a TDap shot in the last 10 years you should obtain one as well. Discussed with patient & provided with informatio n regarding Gardisil vaccine to prevent the 4 strains for HPV that cause cervical cancer if under age 26. Encourage safe sexual practices, to use condoms and limit partners if not already in a monogamous relationsh ip. Do monthly self breast exams. Have mammogram yearly or every other year depending on family history. BRCA testing is now available for patients with strong genetic history of female cancer. If interested contact the office. Engage in daily exercise of low impact aerobic exercise 45-60 minutes 4-5 times weekly. Avoid tobacco and illicit drugs as well as using moderation with alcohol intake less than 1-2 8 oz beverages daily. This lifestyle behavior pattern will lead to less health conditions and longer life span. If BMI greater than 25 weight watchers or dietary consult advised. Patient received above instructio ns, and questions have been answered. If you have any questions please call or respond to this email. Patient was made aware of the patient portal and may obtain a paper copy of today's plan if desired. WWETTC, encouraged to continue daily PNVHx of abnormal pap in 2018 - ASCUS, HR HPV (+)last pap 2021 - normalpap updated todaySTI testing declinedUT D with PCPRTC in 1 year or sooner if neededcall the office with any positive UPT [id number] TRAMAINE Swift [facility] [address] [address] 02/10/2023 13:53:49 02/10/2023 15:08:19 Irregular periods 42065468 N92.6 Threatened miscarriage 50737171 O20.0 (+) UPT todaybhcg and rhogam labs ordered to be done at [facility]. She will need to return to [facility] for rhogam injection once labs are back later today. Will have OB dept reach out to patient today to review results/di scuss next steps.disc ussed threatened miscarriag e vs early bleeding. Will have to check bhcg and repeat in 48 hours. Questions answered, pt verbalized understand ing. Precaution s reviewed test positive 047584326 Z32.01 Blood grou p O Rh(D) negative 071488325 Z67.41 [id number] TRAMAINE Swift [facility] [address],[place] [address] 02/10/2023 15:15:29 02/11/2023 09:27:22 test positive 951319941 Z32.01 duplicate encounter [id number] Emily Montelongo [facility] [address],[place] [address] 02/24/2023 09:58:36 02/24/2023 10:50:22 Threatened miscarriage 07916701 O20.0 O34.11 Z3A.01 [id number] Pamela Gruber [facility] [address],[place] [address] 03/15/2023 16:55:24 03/15/2023 17:40:18 Threatened miscarriage 31101464 O20.0 O34.11 Z3A.01 [id number] PRASHANTH RODRIGUEZ MD [facility] [address],[place] [address] 03/15/2023 16:55:52 03/17/2023 15:20:52 Missed miscarriage 59506686 O02.1 - US today demonstrat ed missed miscarriag e with no FHT and size date discrepanc y- hx of recurrent miscarriag e x3- discussed expectant vs medical vs surgical management , as well as genetic testing on POC with D&C- patient would like to schedule suction D&C with genetic testing on POC, will send for scheduling - bleeding precaution s reviewed Recurrent miscarriage 10 8956004 N96 - hx of 3 consecutiv e miscarriag es- previous APLS work up normal- discussed parental karyotypes and uterine cavity evaluation to rule out other etiologies ; patient desires further workup [id number] PRASHANTH RODRIGUEZ MD [facility] [address] [address] 05/02/2023 17:00:01 05/05/2023 13:36:48 Recurrent miscarriage 287139383 N96 - s/p 2 consecutiv e miscarriag es- hx of 1 in 2017- POC from suction D&C shows 47 XX, inversion 9, +16- discussed potential causes of recurrent miscarriag es including APLS, thyroid disease, diabetes, structural (polyps, fibroids, mullerian anomalies, scar tissue), abnormal parental karyotypes .- Paternal karyotype 46XY; maternal karyotype 46XX, inversion 9 which is normal variant- previous APLS, TSH, and A1c wnl 04/2022- at visit, discussed in office hysterosco py to evaluate for structural issues, however on review of previous pelvic US, would recommend SIS due to small fibroid seen previously and possible need for operative hysterosco py if impinging on cavity; will discuss with patient and schedule Postoperative visit 4616 83529 Z48.89 - s/p suction D&C 03/22- meeting postop milestones , no issues [id number] PRASHANTH RODRIGUEZ MD [facility] [address] [address] 06/13/2023 15:39:29 06/13/2023 16:52:43 Recurrent miscarriage 059869387 N96 - s/p 2 consecutiv e miscarriag es- hx of 1 in 2017- POC from suction D&C shows 47 XX, inversion 9, +16- discussed potential causes of recurrent miscarriag es including APLS, thyroid disease, diabetes, structural (polyps, fibroids, mullerian anomalies, scar tissue), abnormal parental karyotypes .- Paternal karyotype 46XY; maternal karyotype 46XX, inversion 9 which is normal variant- previous APLS, TSH, and A1c wnl 04/2022- SIS performed today; will follow up with next steps after review of images [id number] Pamela Gruber [facility] [address] [address] 06/13/2023 15:40:35 06/13/2023 16:39:01 Uterine leiomyoma 02466906 N96 D25.9 [id number] PRASHANTH RODRIGUEZ MD [facility] [address],[place] [address] 07/28/2023 16:25:46 08/03/2023 06:20:25 Missed period 94929189 N92.5 Gynecologi c examination 18414628 Z01.419 Z11.51 Well woman care- Cervical cancer screening: Pap smear obtained today, will follow up on the results with the patient as they become available- Breast cancer screening: mammogram does not qualify- Colon cancer screening: does not qualify- STD testing: declines- hereditary cancer screening: does not qualify for testing Urine preg sheila test positive 682260988 Z32.01 - UPT positive in office today- will trend hcg and check progestero ne- precaution s reviewed- discussed bASA for hx of recurrent miscarriag e [id number] PRASHANTH RODRIGUEZ MD [facility] [address],[place] [address] 08/22/2023 09:43:01 08/22/2023 10:35:11 test positive 198561004 Z32.01 1. Exam today within normal limits.2. Ultrasound today confirms GA and viability. EDC . GC/Clamydi a testing done: will f/u as indicated. Pap smear UTD4. ACOG guidelines and plan of care for reviewed with patient. All questions answered.5 . Return to office at 12 weeks for new OB visit6. Will need new OB labs at next visit.7. Genetic screening: desires Recurrent miscarriage 10 9602559 N96 - taking bASA Candidiasis of vagina 72 929343 B37.31 - reports yeast like symptoms- discussed monistat vs diflucan, will trial monistat [id number] [facility] [address],[place] [address] 08/22/2023 09:40:51 08/22/2023 10:04:[id number] [facility] [address] [address] 09/20/2023 09:31:47 09/20/2023 10:12:14 screening 815404733 Z36.82 Z3A.12 [id number] Mariaa Garcia [facility] [address],[place] [address] 09/20/2023 09:32:19 09/20/2023 10:56:48 Past history of recurrent miscarriage 3082724035 Z87.59 Past pregn hans history of growth restriction 944477915 Z87.59 Gestation period, 12 weeks 61015336 Z3A.12 Routine an tenatal care 004505464 Z34.90 [id number] PRASHANTH RODRIGUEZ MD [facility] [address],[place] [address] 10/18/2023 17:45:57 10/19/2023 07:58:49 Past history of recurrent miscarriage 8003871398 Z87.59 Gestation period, 16 weeks 49072325 Z3A.16 [id number] Pamela Gruber [facility] [address],[place] [address] 11/18/2023 09:59:49 11/18/2023 11:12:39 screening for malformation 372394035 Z36.3 O34.12 Z3A.20 [id number] PRASHANTH RODRIGUEZ MD [facility] [address],[place] [address] 11/18/2023 10:03:04 11/18/2023 12:03:33 Past history of growth restriction 881848123 Z87.59 - EFW 30%, repeat at 32 weeks Uterine fi broids affecting 88235875 D25.9 - 5cm R MARTI, slight size increase from 1st trimester Gestation period, 20 weeks 04001936 Z3A.20 [id number] PRASHANTH RODRIGUEZ MD [facility] [address],[place] [address] 12/13/2023 09:42:43 12/13/2023 10:15:17 Heartburn 88035181 R12 Past pregn hans history of growth restriction 161188114 Z87.59 - EFW 30% at anatomy US, repeat at 32 weeks Gestation period, 24 weeks 214995560 Z3A.24 - continue PNV and Fe [id number] Radu Brown MD [facility] [address],[place] [address] 01/05/2024 16:15:50 01/05/2024 17:22:14 Routine care 451517570 Z34.90 [id number] Emily Montelongo [facility] [address],[place] [address] 01/05/2024 17:22:00 01/05/2024 17:53:55 Uterine size for dates discrepancy 135571107 O26.842 Z3A.27 [id number] PRASHANTH RODRIGUEZ MD [facility] [address],[place] [address] 01/09/2024 15:14:36 01/09/2024 16:36:54 Past history of growth restriction 616494534 Z87.59 - EFW 30% at anatomy US, 24% at 27 weeks, repeat at 32 weeks Gestation period, 28 weeks 40803672 Z3A.28 - continue PNV [id number] PRASHANTH RODRIGUEZ MD [facility] [address],[place] [address] 01/24/2024 17:40:35 01/24/2024 18:20:53 Past history of growth restriction 328114967 Z87.59 - EFW 30% at anatomy US, 24% at 27 weeks, repeat at 32 weeks Gestation period, 30 weeks 91337428 Z3A.30 [id number] Pamela Gruber [facility] [address],[place] [address] 02/06/2024 09:57:57 02/06/2024 10:42:37 care: poor obstetric history 418613713 O09.293 O09.893 Z3A.32 [id number] PRASHANTH RODRIGUEZ MD [facility] [address],[place] [address] 02/06/2024 09:59:31 02/06/2024 12:32:12 growth restriction 54603900 O36.5999 - hx of- 32 week growth scan wnl Gestation period, 32 weeks 8933255 Z3A.32 [id number] PRASHANTH RODRIGUEZ MD [facility] [address],[place] [address] 02/22/2024 09:31:55 02/22/2024 10:17:55 Routine care 529406162 Z34.90 [id number] PRASHANTH RODRIGUEZ MD [facility] [address],[place] [address] 03/06/2024 10:21:04 03/06/2024 11:03:54 Routine care 000648888 Z34.90 [id number] MD Hortencia SANCHEZ [address],[place] [address] 03/14/2024 09:35:06 03/14/2024 16:39:56 Routine care 377781952 Z34.90 [id number] PRASHANTH RODRIGUEZ MD [facility] [address],[place] [address] 03/21/2024 09:30:49 03/21/2024 10:05:29 Routine care 187402734 Z34.90 [id number] PRASHANTH RODRIGUEZ MD [facility] [address],[place] [address] 03/28/2024 09:24:05 03/28/2024 10:06:00 Routine care 351860766 Z34.90 [id number] PRASHANTH RODRIGUEZ MD [facility] [address],[place] [id number] 1 04/02/2024 10:31:30 04/05/2024 02:44:56 Routine care [id number] Z34.90 [id number] Sussy Denise Barnhart [address],[place] [address] 04/02/2024 10:32:58 04/02/2024 11:17:37 Past history of pre-eclampsia [id number] Z87.59 Health Concerns Section Related Observation LastModified by Organization Detai ls LastModified Time None Recorded Concern Status LastModified by Organization Details LastModified Time None Recorded Advance Directives Directive N: Payers Encounter Date Sequence Insurance Name Policy Number Policy Orta Covered Member ID Orta Member ID Guarantor Name 03/14/2024 1 [facility] [id number] [facility] [id number] [facility] 03/21/2024 1 [facility] [id number] [place] [address] [id number] Cira Aleman 03/28/2024 1 [facility] [id number] Cira Aleman [id number] Cira Aleman 04/02/2024 1 [facility] [id number] Cira Aleman [id number] Cira Aleman 04/02/2024 1 [facility] [id number] Cira Aleman [id number] Cira Aleman OBGyn Episode Ob Episode Information Episode Created Date Number of Fetuses Patient Bloodtype Patient rh Status Prepregnancy Weight lbs Domestic Partner Domestic Partner Phone Father Name Monkey Trainer Status 12/31/19 1 CLOSED Fetus Data First Name Last Name Admitted to NICU Weight (g) Sex Living Outcome Pediatric Complications Fetus ID Race Codes Race Delivery Type , Spontane ous 6152 Ubaldo Calculation Initial Ubaldo Date Initial Exam Date Initial Exam Provider Initial Ultrasound Date Last Menstrual Period Date Ultra Sound Weeks Gestation 0 Eighteen To Twenty Week Ubaldo Update Ultra Sound Date Fundal Height At Umbil Quickening Date Ultra Sound Latest Weeks Gestation Final Ubaldo Confirmed By Final Ubaldo Confirmed Date Final Ubaldo Date Ultra Sound Latest Days Gestation 0 0 Menstrual History Last Menstrual Date Menses Monthly On Bcp Conception Prior Menses Frequency Hcg Plus Date Menarche Onset Age Delivery Information Delivery Date Delivery Type Labor Anesthesia Weeks Gestation Incision Type Labor Labor Length Hrs Delivered By Post Complications Tubal Sterilization Discharge Date Comments 04/2017 miscarrai ge Discharge Information Feeding Method Contraceptive Method Maternal HG B and HCT Levels Ob Episode Information Episode Created Date Number of Fetuses Patient Bloodtype Patient rh Status Prepregnancy Weight lbs Domestic Partner Domestic Partner Phone Father Name Monkey Trainer Status 12/31/19 1 CLOSED Fetus Data First Name Last Name Admitted to NICU Weight (g) Sex Living Outcome Pediatric Complications Fetus ID Race Codes Race Delivery Type , Spontane ous 6153 Ubaldo Calculation Initial Ubaldo Date Initial Exam Date Initial Exam Provider Initial Ultrasound Date Last Menstrual Period Date Ultra Sound Weeks Gestation 0 Eighteen To Twenty Week Ubaldo Update Ultra Sound Date Fundal Height At Umbil Quickening Date Ultra Sound Latest Weeks Gestation Final Ubaldo Confirmed By Final Ubaldo Confirmed Date Final Ubaldo Date Ultra Sound Latest Days Gestation 0 0 Menstrual History Last Menstrual Date Menses Monthly On Bcp Conception Prior Menses Frequency Hcg Plus Date Menarche Onset Age Delivery Information Delivery Date Delivery Type Labor Anesthesia Weeks Gestation Incision Type Labor Labor Length Hrs Delivered By Post Complications Tubal Sterilization Discharge Date Comments 0 08/2019 miscarria ge Discharge Information Feeding Method Contraceptive Method Maternal HG B and HCT Levels Ob Episode Information Episode Created Date Number of Fetuses Patient Bloodtype Patient rh Status Prepregnancy Weight lbs Domestic Partner Domestic Partner Phone Father Name Monkey Trainer Status 12/31/19 20 1 CLOSED Fetus Data First Name Last Name Admitted to NICU Weight (g) Sex Living Outcome Pediatric Complications Fetus ID Race Codes Race Delivery Type 2976.47 [id number] F Full Term 6154 Vaginal Delivery Ubaldo Calculation Initial Ubaldo Date Initial Exam Date Initial Exam Provider Initial Ultrasound Date Last Menstrual Period Date Ultra Sound Weeks Gestation 0 Eighteen To Twenty Week Ubaldo Update Ultra Sound Date Fundal Height At Umbil Quickening Date Ultra Sound Latest Weeks Gestation Final Ubaldo Confirmed By Final Ubaldo Confirmed Date Final Ubaldo Date Ultra Sound Latest Days Gestation 0 0 Menstrual History Last Menstrual Date Menses Monthly On Bcp Conception Prior Menses Frequency Hcg Plus Date Menarche Onset Age Delivery Information Delivery Date Delivery Type Labor Anesthesia Weeks Gestation Incision Type Labor Labor Length Hrs Delivered By Post Complications Tubal Sterilization Discharge Date Comments 8 39.1 IUGR / small fibroid Discharge Information Feeding Method Contraceptive Method Maternal HG B and HCT Levels Ob Episode Information Episode Created Date Number of Fetuses Patient Bloodtype Patient rh Status Prepregnancy Weight lbs Domestic Partner Domestic Partner Phone Father Name Monkey Trainer Status 03/30/19 23 1 CLOSED Fetus Data First Name Last Name Admitted to NICU Weight (g) Sex Living Outcome Pediatric Complications Fetus ID Race Codes Race Delivery Type [id number] Ubaldo Calculation Initial Ubaldo Date Initial Exam Date Initial Exam Provider Initial Ultrasound Date Last Menstrual Period Date Ultra Sound Weeks Gestation 0 Eighteen To Twenty Week Ubaldo Update Ultra Sound Date Fundal Height At Umbil Quickening Date Ultra Sound Latest Weeks Gestation Final Ubaldo Confirmed By Final Ubaldo Confirmed Date Final Ubaldo Date Ultra Sound Latest Days Gestation 0 0 Menstrual History Last Menstrual Date Menses Monthly On Bcp Conception Prior Menses Frequency Hcg Plus Date Menarche Onset Age Delivery Information Delivery Date Delivery Type Labor Anesthesia Weeks Gestation Incision Type Labor Labor Length Hrs Delivered By Post Complications Tubal Sterilization Discharge Date Comments 3 Discharge Information Feeding Method Contraceptive Method Maternal HG B and HCT Levels Ob Episode Information Episode Created Date Number of Fetuses Patient Bloodtype Patient rh Status Prepregnancy Weight lbs Domestic Partner Domestic Partner Phone Father Name Monkey Trainer Status 09/20/19 24 1 O Negative 140.2 OPEN Fetus Data First Name Last Name Admitted to NICU Weight (g) Sex Living Outcome Pediatric Complications Fetus ID Race Codes Race Delivery Type [id number] Problems Problem Notes Problem Name Start Date End Date Resolution Snomed Code Not e growth restriction [id number] h/o IUGR antena tolu testing @ 32wks- resolved 02/05 Ubaldo Calculation Initial Ubaldo Date Initial Exam Date Initial Exam Provider Initial Ultrasound Date Last Menstrual Period Date Ultra Sound Weeks Gestation 04/02/2024 08/22/2023 08/22/2023 06/27/2023 8 Eighteen To Twenty Week Ubaldo Update Ultra Sound Date Fundal Height At Umbil Quickening Date Ultra Sound Latest Weeks Gestation Final Ubaldo Confirmed By Final Ubaldo Confirmed Date Final Ubaldo Date Ultra Sound Latest Days Gestation 0 0 Pre- Flowsheet Flowsheet Date 09/20/2023 Darby Score Blood Edema Fundus Height Fundus Units Glucose Ketones Leukocytes Nitrite Labor Signs Protein Cervic Dilation Cervic Effacement Cervic Station Type Weight in lbs Pre/Post Dialysis Refused Weight 137.844061170432 BP Diastolic BP Location Tested BP Systolic BP Type 79 126 Fetus Heart Rate Present A 159 Fetus Movement Comments Patient presents to [facility]. has been complicated by a history of recurrent miscarriages, most recently 02/2023 s/p D&C. PMH/PSH otherwise unremarkable. This overall uncomplicated, mild nausea however patient reports this is improving. Hx of FGR in her G2 , term . NT/NB wnl today, 4cm MARTI fibroid noted to be stable. Desires NIPT, will draw today with new OB labs. Discussed routine care. RTC 4 weeks. Flowsheet Date 10/18/2023 Darby Score Blood Edema Fundus Height Fundus Units Glucose Ketones Leukocytes Nitrite Labor Signs Protein Cervic Dilation Cervic Effacement Cervic Station Type Weight in lbs Pre/Post Dialysis Refused Weight 141.597023666340 BP Diastolic BP Location Tested BP Systolic BP Type 85 140 Fetus Heart Rate Present A 150 Fetus Movement A No Comments Doing well, nausea improved. No movement yet. Low risk NIPT, surprise gender! Other new OB labs wnl. Nausea improved. Continues on bASA. Discussed anatomy US for next visit. RTC 4 weeks. Flowsheet Date 11/18/2023 Darby Score Blood Edema Fundus Height Fundus Units Glucose Ketones Leukocytes Nitrite Labor Signs Protein Cervic Dilation Cervic Effacement Cervic Station Type Weight in lbs Pre/Post Dialysis Refused BP Diastolic BP Location Tested BP Systolic BP Type Fetus Heart Rate Present Fetus Movement Comments Flowsheet Date 11/18/2023 Darby Score Blood Edema Fundus Height Fundus Units Glucose Ketones Leukocytes Nitrite Labor Signs Protein Cervic Dilation Cervic Effacement Cervic Station neg none none trace Type Weight in lbs Pre/Post Dialysis Refused 144.189856452944 BP Diastolic BP Location Tested BP Systolic BP Type 72 L arm 118 sitting Fetus Heart Rate Present Fetus Movement A Yes Comments Doing well, good movem ent. No cramping or bleeding. EFw 30%, will repeat at 32 weeks due to hx of growth restriction. R MARTI fibroid with slight increased size, 5cm. Will continue to monitor as well. Otherwise, doing well. RTC4 weeks. Flowsheet Date 12/13/2023 Darby Score Blood Edema Fundus Height Fundus Units Glucose Ketones Leukocytes Nitrite Labor Signs Protein Cervic Dilation Cervic Effacement Cervic Station neg none none trace Type Weight in lbs Pre/Post Dialysis Refused 148.906460667671 BP Diastolic BP Location Tested BP Systolic BP Type 72 L arm 110 sitting Fetus Heart Rate Present A 150 Fetus Movement A Yes Comments Patient c/o of swelling in f eet and lower abdomen pressure. GOod movement. No bleeding or contractions. Having heartburn, will try pepcid. Discussed GCT, labs, and Rhogam at [facility] for next visit. RTC 4 weeks. Flowsheet Date 01/05/2024 Darby Score Blood Edema Fundus Height Fundus Units Glucose Ketones Leukocytes Nitrite Labor Signs Protein Cervic Dilation Cervic Effacement Cervic Station Type Weight in lbs Pre/Post Dialysis Refused 150.412312054348 BP Diastolic BP Location Tested BP Systolic BP Type 73 L arm 112 sitting Fetus Heart Rate Present A 144 Fetus Movement A Yes Comments no complaints, no problems, routine care, no contractions, no vaginal bleeding, no loss of fluid, no cramping Flowsheet Date 01/05/2024 Darby Score Blood Edema Fundus Height Fundus Units Glucose Ketones Leukocytes Nitrite Labor Signs Protein Cervic Dilation Cervic Effacement Cervic Station Type Weight in lbs Pre/Post Dialysis Refused BP Diastolic BP Location Tested BP Systolic BP Type Fetus Heart Rate Present Fetus Movement Comments Flowsheet Date 01/09/2024 Darby Score Blood Edema Fundus Height Fundus Units Glucose Ketones Leukocytes Nitrite Labor Signs Protein Cervic Dilation Cervic Effacement Cervic Station neg none none trace Type Weight in lbs Pre/Post Dialysis Refused 149.525444276618 BP Diastolic BP Location Tested BP Systolic BP Type 69 L arm 107 sitting Fetus Heart Rate Present A 140 Fetus Movement A Yes Comments Had an episode of bloody sto ols x2 last week, has not had it since then. Does report eating beets prior to episode. Likely coloring due to beets, no pain or continued issues. Good movement. No cramping or bleeding. Completed GCT and labs at [facility] today, will await results. Discussed growth from last week, overall ok but slight percentile drop. Will repeat at 32 weeks. Discussed tdap and flu shot. RTC 2 weeks. Flowsheet Date 01/24/2024 Draby Score Blood Edema Fundus Height Fundus Units Glucose Ketones Leukocytes Nitrite Labor Signs Protein Cervic Dilation Cervic Effacement Cervic Station neg none Type Weight in lbs Pre/Post Dialysis Refused Weight 152.913092533454 BP Diastolic BP Location Tested BP Systolic BP Type 75 L arm 117 sitting Fetus Heart Rate Present A 145 Fetus Movement A Yes Comments Patient c/o of swelling in f eet. Good movement. No cramping or bleeding. No further red stools. GCT and labs wnl. Repeat growth US next visit due to hx of FGR in last . RTC 2 weeks. Flowsheet Date 02/06/2024 Darby Score Blood Edema Fundus Height Fundus Units Glucose Ketones Leukocytes Nitrite Labor Signs Protein Cervic Dilation Cervic Effacement Cervic Station Type Weight in lbs Pre/Post Dialysis Refused BP Diastolic BP Location Tested BP Systolic BP Type Fetus Heart Rate Present Fetus Movement Comments Flowsheet Date 02/06/2024 Darby Score Blood Edema Fundus Height Fundus Units Glucose Ketones Leukocytes Nitrite Labor Signs Protein Cervic Dilation Cervic Effacement Cervic Station neg none Type Weight in lbs Pre/Post Dialysis Refused Weight 153.489951978635 BP Diastolic BP Location Tested BP Systolic BP Type 72 L arm 102 sitting Fetus Heart Rate Present A Present Fetus Movement A Yes Comments Patient c/o of swelling in f eet. Good movement. Growth US wnl, EFW 44% today. Leaning toward EIL, unsure. Will discuss at further visits. Considering trip to [place] over New Years, discussed precautions. Discussed RSV vaccine. RTC 2 weeks. Flowsheet Date 02/22/2024 Darby Score Blood Edema Fundus Height Fundus Units Glucose Ketones Leukocytes Nitrite Labor Signs Protein Cervic Dilation Cervic Effacement Cervic Station neg trace Type Weight in lbs Pre/Post Dialysis Refused Weight 157.522159598484 BP Diastolic BP Location Tested BP Systolic BP Type 79 L arm 124 sitting Fetus Heart Rate Present Fetus Movement A Yes Comments Doing well, good movem ent. No cramping or bleeding. Hemorrhoid, discussed OTC meds. Discussed preadmission. Desires to wait for spontaneous labor. Received RSV vaccine. Discussed GBS swab for next visit. RTC 2 weeks. Flowsheet Date 03/06/2024 Darby Score Blood Edema Fundus Height Fundus Units Glucose Ketones Leukocytes Nitrite Labor Signs Protein Cervic Dilation Cervic Effacement Cervic Station neg trace 1cm 50% -3 Type Weight in lbs Pre/Post Dialysis Refused Weight 159.947240686550 BP Diastolic BP Location Tested BP Systolic BP Type 77 L arm 120 sitting Fetus Heart Rate Present A 140 Fetus Movement A Yes Comments Patient c/o of swelling in h ands and feet. No ctx, LOF, or VB. GBS collected. SVE performed. Labor precautions reviewed. RTC 1 week. Flowsheet Date 03/14/2024 Darby Score Blood Edema Fundus Height Fundus Units Glucose Ketones Leukocytes Nitrite Labor Signs Protein Cervic Dilation Cervic Effacement Cervic Station neg trace Type Weight in lbs Pre/Post Dialysis Refused Weight 161.590091101427 BP Diastolic BP Location Tested BP Systolic BP Type 73 L arm 121 sitting Fetus Heart Rate Present A 145 Fetus Movement A Yes Comments Patient c/o of swelling in h ands and feet. Good movement. No ctx, LOF, VB. Labor precautions reviewed. RTC 1 week. Flowsheet Date 03/21/2024 Darby Score Blood Edema Fundus Height Fundus Units Glucose Ketones Leukocytes Nitrite Labor Signs Protein Cervic Dilation Cervic Effacement Cervic Station neg trace Type Weight in lbs Pre/Post Dialysis Refused 161.822451039119 BP Diastolic BP Location Tested BP Systolic BP Type 78 L arm 127 sitting Fetus Heart Rate Present Fetus Movement A Yes Comments Patient c/o of swelling in h ands and feet. Good movement. No cramping or bleeding. Labor precautions reviewed. Discussed possible induction if not laboring by due date. Flowsheet Date 03/28/2024 Darby Score Blood Edema Fundus Height Fundus Units Glucose Ketones Leukocytes Nitrite Labor Signs Protein Cervic Dilation Cervic Effacement Cervic Station 1cm 50% -3 Type Weight in lbs Pre/Post Dialysis Refused Weight 164.988779329365 BP Diastolic BP Location Tested BP Systolic BP Type 83 L arm 121 sitting Fetus Heart Rate Present A 142 Present Fetus Movement A Yes Comments Good movement. No cram ping or bleeding. Reviewed labor precautions. Considering induction date, will talk to tonight. Membrane sweep performed today. RTC 1 week or for EIL. Flowsheet Date 04/02/2024 Darby Score Blood Edema Fundus Height Fundus Units Glucose Ketones Leukocytes Nitrite Labor Signs Protein Cervic Dilation Cervic Effacement Cervic Station Type Weight in lbs Pre/Post Dialysis Refused BP Diastolic BP Location Tested BP Systolic BP Type Fetus Heart Rate Present Fetus Movement Comments Flowsheet Date 04/02/2024 Darby Score Blood Edema Fundus Height Fundus Units Glucose Ketones Leukocytes Nitrite Labor Signs Protein Cervic Dilation Cervic Effacement Cervic Station neg none Type Weight in lbs Pre/Post Dialysis Refused Weight 164.525294705098 BP Diastolic BP Location Tested BP Systolic BP Type 77 L arm 121 sitting Fetus Heart Rate Present A Present Fetus Movement A Yes Comments Patient c/o of slight swelli ng in feet. Good movement. No bleeding or LOF. NST reactive. Will schedule induction at 41 weeks. Labor precautions reviewed. EIL scheduled 04/09. Menstrual History Last Menstrual Date Menses Monthly On Bcp Conception Prior Menses Frequency Hcg Plus Date Menarche Onset Age 0506/27/2023 Delivery Information Delivery Date Delivery Type Labor Anesthesia Weeks Gestation Incision Type Labor Labor Length Hrs Delivered By Post Complications Tubal Sterilization Discharge Date Comments Discharge Information Feeding Method Contraceptive Method Maternal HG B and HCT Levels Ob Episode Information Episode Created Date Number of Fetuses Patient Bloodtype Patient rh Status Prepregnancy Weight lbs Domestic Partner Domestic Partner Phone Father Name Monkey Trainer Status 09/20/19 24 1 CLOSED Fetus Data First Name Last Name Admitted to NICU Weight (g) Sex Living Outcome Pediatric Complications Fetus ID Race Codes Race Delivery Type , Spontane ous [id number] Ubaldo Calculation Initial Ubaldo Date Initial Exam Date Initial Exam Provider Initial Ultrasound Date Last Menstrual Period Date Ultra Sound Weeks Gestation 0 Eighteen To Twenty Week Ubaldo Update Ultra Sound Date Fundal Height At Umbil Quickening Date Ultra Sound Latest Weeks Gestation Final Ubaldo Confirmed By Final Ubaldo Confirmed Date Final Ubaldo Date Ultra Sound Latest Days Gestation 0 0 Menstrual History Last Menstrual Date Menses Monthly On Bcp Conception Prior Menses Frequency Hcg Plus Date Menarche Onset Age Delivery Information Delivery Date Delivery Type Labor Anesthesia Weeks Gestation Incision Type Labor Labor Length Hrs Delivered By Post Complications Tubal Sterilization Discharge Date Comments 4 Discharge Information Feeding Method Contraceptive Method Maternal HG B and HCT Levels
--- OUTSIDE RECORDS SUMMARY | 2024-04-07 19:26 | XMS_ITS | Clinical Summary ---
Author Organization [facility] Address [address] [place] [id number] Care Team Providers Care Technical Assistance Consultant Name Role Phone Kristina Zoe MARICHUY Primary Care Provider [phone] Allergies No known active allergies Medications pantoprazole EC (PROTONIX) 20 MG tabletIndication s:Abdominal bloating Take 1 tablet (20 mg total) by mouth daily. 90 tablet 1 3 Active Additional Information Patient not taking.Reported on 05/09/2023 probiotic (FLORAJEN3) Cap capsule Take 1 capsule by mouth 3 (three) times daily with meals. Active fluticasone propionate (FLONASE) 50 MCG/ACT nasal sprayIndications :Allergic rhinitis, unspecified seasonality, unspecified trigger 2 sprays by Each Nostril route daily. 16 g 4 4 Active Active Problems Problem Noted Date Diagnosed Date Uterine leiomyoma 03/18/2019 Atypical squamous cells of u ndetermined significance (ASCUS) on Papanicolaou smear of cervix 07/21/2017 Overview (01/03/2023): Atyp squam cell of undet signfc cyto smr crvx (ASC-US);Recorded Elsewhere: No Location: [facility] Source: EHR Chronic: N Practice ID: [id number] Billable Time: 03:35:48 PM Cervical high risk human pap illomavirus (HPV) DNA test positive 12/27/2016 Overview (01/03/2023): Cervical high risk HPV DNA test positive;Recorded Elsewhere: No Location: [facility] Source: EHR Chronic: N Practice ID: [id number] Billable Time: 04:00:00 PM Family History Medical History Relation Comments Hypertension Maternal Grandfather Relation Status Comments Maternal Grandfather Social History Tobacco Use Types Packs/Day Years Used Date Smoking Tobacco: Never Smokeless Tobacco: Never Tobacco Cessation:Counseling Given: No Alcohol Use Standard Drinks/Week Comments Yes 0 (1 standard drink = 0.6 oz pur e alcohol) PHQ-2 Answer Date Recorded Patient Health Questionnaire-2 Score 0 11/01/2022 Comments No Sex and Gender Information Value Date Recorded Sex Assigned at Not on file Legal Sex Female 8:59 AM CDT Gender Identity Not on file Sexual Orientation Not on file Last Filed Vital Signs Vital Sign Reading Time Taken Comments Blood Pressure 116/70 05/09/2023 8:44 AM CDT Pulse 70 05/09/2023 8:44 AM CDT Temperature 36 C (96.8 F) 05/09/2023 8:44 AM CDT Respiratory Rate 16 05/09/2023 8:44 AM CDT Oxygen Saturation 98% 05/09/2023 8:44 AM CDT Inhaled Oxygen Concentration - - Weight 64.4 kg (142 lb) 05/09/2023 8:44 AM CDT Height 152.4 cm (5') 05/09/2023 8:44 AM CDT Body Mass Index 27.73 05/09/2023 8:44 AM CDT Plan of Treatment Health Maintenance Due Date Last Done Comments Annual Physical 1992 Hepatitis C 07/17/2007 Hepatitis B Vaccines (1 of 3 - 19+ 3-dose series) 2008 Cervical Cancer Screening Pa p with HPV Testing (Age 30 to 64) Every 5 Years 07/17/2019 COVID-19 Vaccine (2023-2 5 season) 2023 01/26/2021, 05/20/2020, 04/28/2020 PHQ-2 ([facility]) 11/02/2023 11/01/2022 Influenza Adult (#1) 2023 12/06/2019, 12/10/2017 PHQ-2 ([facility]) 02/15/2024 11/01/2022 Cervical Cancer Screening Pa p Smear (Age 30 to 64) Every 3 Years 08/05/2025 08/05/2022 Cervical Cancer Screening wi th HPV 08/05/2025 DTaP, Tdap and Td Vaccines ( 2 - Td or Tdap) 12/11/2027 12/10/2017 HPV Vaccines Aged Out No longer eligi ble based on patient's age to complete this topic Meningococcal B Vaccine Aged Out No l onger eligible based on patient's age to complete this topic Meningococcal Vaccine Aged Out No j[place] eligible based on patient's age to complete this topic Pneumococcal Vaccine: Pediatrics (0 to 5 Years) and At-Risk Patients (6 to 64 Years) Aged Out No longer eligible b ased on patient's age to complete this topic RSV Immunizations Under 20 Months Aged Out No longer eligible b ased on patient's age to complete [place] [address] [facility] Care Teams Technical Assistance Consultant Relationship Specialty Start Date End Date Zoe [place] [address] PCP - General NURSE PRACTITIONER 07/14/23
--- OUTSIDE RECORDS SUMMARY | 2024-04-07 19:26 | XMS_ITS | Continuity of Care Document ---
Author Organization [facility] Address [address] [place] [address] [place] [address] Phone Care Team Providers Care Web Application Dev Specialist Name Role Phone Wally Kumar MD Unavailable Unavailable Allergies, Adverse Reactions, Alerts Substance Reaction Status Criticality No Known Allergies Active No Inform ation Medications Medication Instructions Dosage Effective Dates (start - stop) Status Comments fluticasone propionate 50 mcg/actuation nasal spray,suspension inhale 2 spray by intranasal route every day in each nostril 100 MCG - Active Procedures Procedure Date OFFICE/OUTPATIENT VISIT, EST OFFICE/OUTPATIENT VISIT, EST OFFICE/OUTPATIENT VISIT, EST PREV VISIT, EST, AGE 18-39 OFFICE/OUTPATIENT VISIT, EST OFFICE/OUTPATIENT VISIT, EST OFFICE/OUTPATIENT VISIT, EST PREV VISIT, EST, AGE 18-39 OFFICE/OUTPATIENT VISIT, EST OFFICE/OUTPATIENT VISIT, EST OFFICE/OUTPATIENT VISIT, EST PREV VISIT, EST, AGE 18-39 PREV VISIT, NEW, AGE 18-39 Advance Directives Directive Yes / No Effective Date File Name No Information Encounters Encounter Description Practice Location Reason(s) For Visit Diagnoses Date Provider Providers Copied on Encounter OFFICE/OUTPA TIENT VISIT, EST [facility], [address] [place], [id number], [place] tel:[phone] [facility] sore throat1 (chief complaint) palpitatio n1 (chief complaint) GERD1 (chief complaint) Acute laryngitisAllergic rhinitisGERD w/o esophagitisPalpitat ions Donald-0 1 José Mosqueda [address], [place], [place], [address] , [place]. tel:[phone] OFFICE/OUTPA TIENT VISIT, EST [facility], [address], [address], [place] tel:[phone] [facility] GERD1 (chief complaint) palpitatio n1 (chief complaint) GERD w/o esophagitisPalpitat ionsHyperglycemiaTu berculosis of lung May-0 1 José Mosqeuda [address], [place], [place], [address] , [place]. tel:[phone] OFFICE/OUTPA TIENT VISIT, EST [facility], [address], [address], [place] tel:[phone] [facility] GERD1 (chief complaint) palpitatio n1 (chief complaint) GERD w/o esophagitisPalpitat ionsBloatingAcne Dec-2 0 José Mosqueda [address], [place], [place], [address] , [place]. tel:[phone] PREV VISIT, EST, AGE 18-39 [facility], [address], [address], [place] [phone] [facility] physical (chief complaint) Encounter for general adult medical examination without abnormal findings Dec-0 0 José Mosqueda [address], [place], [place], [address] , [place]. tel:[phone] OFFICE/OUTPA TIENT VISIT, EST [facility], [address], [place], [place], [address], [place] tel:[phone] [facility] palpitatio n1 (chief complaint) HTN (chief complaint) PalpitationsEssenti al (primary) hypertensionAbnorma l echoQualitative platelet defects 0 José Lo. [address], [place], [place], [address] , [place]. [phone] OFFICE/OUTPA TIENT VISIT, EST [facility], [address], [place], [place], [address], [place] [phone] [facility] HTN (chief complaint) palpitatio n1 (chief complaint) TB (chief complaint) fatigue1 (chief complaint) Essential (primary) hypertensionFatigue PalpitationsTubercu losis of lung 9 José Lo. [address], [place], [place], [address] , [place]. tel:[phone] Referring Provider: Adebayo Mckenna [facility], [place], [place], [address]. tel:[phone] OFFICE/OUTPA TIENT VISIT, EST [facility], [address], [place], [place], [address], [place] [phone] [facility] fatigue1 (chief complaint) TB (chief complaint) glucose1 (chief complaint) platelet (chief complaint) FatigueHyperglycemi aQualitative platelet defectsNonspec reaction to gamma intrfrn respns w/o actv tubrclosisMono without complication 9 José Mosqueda [address], [place], [place], [address] , [place]. [phone] PREV VISIT, EST, AGE 18-39 [facility], [address], [place], [place], [address], [place] [phone] [facility] PHysical (chief complaint) Encntr for general adult medical exam w/o abnormal findings 9 José Mosqueda [address], [place], [place], [address] , [place]. tel:[phone] Referring Provider: Adebayo Mckenna [facility], [place], [place], [address]. tel:[phone] OFFICE/OUTPA TIENT VISIT, EST [facility], [address], [place], [place], [address], [place] tel:[phone] [facility] thyroid (chief complaint) abdominal 1 (chief complaint) fatigue1 (chief complaint) Disorder of thyroid, unspecifiedFatigueA bdominal distension 8 José Lo. [address], [place], [place], [address] , [place]. tel:[phone] Referring Provider: Wally Kumar [address], [place], [place], [address]. tel:[phone] OFFICE/OUTPA TIENT VISIT, EST [facility], [address], [place], [place], [address], [place] tel:[phone] [facility] abd distension 1 (chief complaint) weight gain1 (chief complaint) fatigue1 (chief complaint) Abdominal distensionFatigueAb normal weight gain 8 José Lo. [address], [place], [place], [address] , [place]. tel:[phone] Referring Provider: Wally Kumar [address], [place], [place], [address]. tel:[phone] OFFICE/OUTPA TIENT VISIT, EST [facility], [address], [place], [place], [address], [place] tel:[phone] [facility] fatigue1 (chief complaint) FatigueHypersomnia 7 José Mosqueda [address], [place], [place], [address] , [place]. tel:[phone] Referring Provider: Adebayo Mckenna [address], [place], [place], [address]. tel:[phone] PREV VISIT, EST, AGE 18-39 [facility], [address], [place], [place], [address], [place] tel:[phone] [facility] PHysical (chief complaint) Encntr for general adult medical exam w/o abnormal findings 7 Kumar Wally. [address], [place], [place], [address] , [place]. tel:[phone] Referring Provider: Wally Kumar, [address], [place], [place], [address]. tel:[phone] PREV VISIT, NEW, AGE 18-39 [facility], [address], [place], [place], [address], [place] tel:[phone] [facility] Physical (chief complaint) Encntr for general adult medical exam w/o abnormal findings 6 José Lo. [address], [place], [place], [address] , [place]. tel:[phone] Referring Provider: Wally Kumar, Adebayo Arambula [facility], [place], [place], [address]. tel:[phone] Family History Family Member Type Diagnosis Age At Onset Mother Problem (finding) Alive and well Father Problem (finding) Alive and well Brother Problem (finding) Alive and well Payers Payer name Insurance type Covered libertarian ID Authoriza tion(s) No Information Social History Type Description Quantity Date Captured Comments Alcohol Use Details No Caffeine Use Details Unknown Tobacco Use Status Never smoked tobacco 2020 Smoking Status Never smoker Sex Female Vital Signs Date / Time: Height Weight BMI Pulse Rate Blood Pressure Temperature Respiratory Rate Body Surface Area Head Circumference BMI percentile Pulse Ox Inhaled Ox 8:15 AM 60.00 in 126.00 lbs 24.6 1 kg/m eter (2) 97.5 F Chief Complaint And Reason For Visit From encounter dated '07/22/2020 17:56'. sore throat1 (chief complaint). Description: Pt c/o mild hoarseness, sinus congestion, postnasal drainage for 3 weeks. Pt denies any cough. Pt denies any fever. Pt denies any sick contact. Pt dd havesore throat 3 weeks ago which resolved quickly Pt denies any dysphagia. Pt denies any headache. Pt also notices mild sneezing recently palpitation1 (chief complaint). Description: Pt has not had any palpitation during the last month. PT had CTA of heart which was ok per cardiology. Pt denies any chest pain GERD1 (chief complaint). Description: pt has not been on omeprazole for a while. Pt states tat she has not noticed much GERD symptoms at all or burping during last month Pt has tahir with [facility] aroundaugust of this year. Pt denies any abd pain or weight los or early satiety Plan Of Treatment Date Type Action Status Goal Special diet education compl eted Goal Special diet education compl eted Referral Ordered: Kenny Saavedra -[facility] Phys[facility] : Internal Medicine : Gastroenterology (related to GERD w/o esophagitis) ordered Referral Referred To: Kenny Saavedra [address]
[facility] [[email or web address]] [address] [place], [place], [phone] Ordered: Referrals: Allopathic & Osteopathic Physicians : Internal Medicine : Gastroenterology. Kenny Saavedra. Evaluate and treat ordered Referral Ordered: UPPER GI W/ KUB ordered Referral Ordered: Cardiology (related to Palpitations) ordered Referral Ordered: Referrals: Cardiology. Evaluate and treat ordered Referral Ordered: DOPPLER ECHO EXAM, HEART ordered Referral Ordered: Infectious Disease (related to Nonspec reaction to gamma intrfrn respns w/o actv tubrclosis) ordered Referral Ordered: Referrals: Infectious Disease. Evaluate and treat ordered Referral Ordered: CHEST X-RAY PA/LAT TWO-VIEWS ordered Referral Ordered: US EXAM, ABDOM, COMPLETE ordered Referral Ordered: Otolaryngology (related to Encntr for general adult medical exam w/o abnormal findings) ordered Referral Ordered: Referrals: Otolaryngology. Evaluate and treat ordered History Of Present Illness Encounter Date Complaint History Of Prese nt Illness sore throat1 Pt c/o mild hoar seness, sinus congestion, postnasal drainage for 3 weeks. Pt denies any cough. Pt denies any fever. Pt denies any sick contact. Pt dd have sore throat 3 weeks ago which resolved quickly Pt denies any dysphagia. Pt denies any headache. Pt also notices mild sneezing recently palpitation1 Pt has not had a ny palpitation during the last month. PT had CTA of heart which was ok per cardiology. Pt denies any chest pain GERD1 pt has not been on omeprazole for a while. Pt states tat she has not noticed much GERD symptoms at all or burping during last month Pt has tahir with [facility] around september of this year. Pt denies any abd pain or weight los or early satiety palpitation1 Pt has not had a ny palpitation while on omeprazole but since stop taking it last week, she notices some mild palpitation when she lies down at night. Pt had negative cardiac echo, holter and EKG and she was evaluated by space officer who sent her to some kind of cardiac imaging study at [facility] 6 months ago but she is not sure what the study was. Pt just know the testing was negative. GERD1 Pt has mild GERD . pt has mild burping .Pt finished 3 months of omeprazole recently. Pt had normal upper GI Pt denies any abd pain Pt states that she did not have any above symptom while on omeprazole but after stop taking above last week, her symptoms returned but very mild now . Pt denies any abd pain. PT denies any nausea palpitation1 Pt has not had a ny chest palpitation since taking omeprazole. Pt denies any chest pain. GERD1 Pt has mild GERd and bloating and burping for several months Pt has been taking omeprazole. Pt denies any constipation or diarrhea or blood in stool. Pt denies any early satiety .Pt denies any abd pain Pt states that burping and GERD and stomach burning resolved with omeprazole but she still has a lot of bloating. Pt denies ay postprandial pain. Pt denies any weight loss pt did stop taking doxy. physical Pt needs annual physical. Pt c/o intermittent pressure and throbbing headache for 2 months. Pt states that it occurs randomly throughout the day. Pt denies any photophobia or nausea. Pt denies any trigger factor. Pt states that sleep makes it better. Pt denies any head injury or waking up at night with headache. Pt feels GERD symptoms for several months Pt feels some stomach burning and some burping. Pt has palpitation and she had two negative holter and she did see cardiology and was told stress is causing her symptoms. pt denies any chest pain. pt also has been taking doxycycline for the pat 6 months for acne from dermatology HTN Her BP is stable today palpitation1 Pt notices occas ional palpitation for two weeks. Pt noticed almost daily palpitation randomly throughout the day. Pt denies any chest pain or sob Pt denies any diaphoresis. Pt states that the episodes usually last 20 mins each times and goes away pt denies any syncope, weakness. Echo showed mild RV dysfunction and left atrial enlargement and leaky valve. EKG is benign. Holter showed occasional premature supraventricular complex and also pVC with low burden. No AV block. Pt denies any chest pain ,Pt denies any sob, Pt denies any exertional related symptoms. fatigue1 Pt has chronic f atigue. Pt denies any sob. Pt did not try adderall TB Pt has latent TB . pt denies any cough, or night sweats Pt is on INH and B6. Pt sees ID. palpitation1 Pt notices occas ional palpitation for two weeks. Pt noticed almost daily palpitation randomly throughout the day. Pt denies any chest pain or sob Pt denies any diaphoresis. Pt states that the episodes usually last 20 mins each times and goes away pt denies any syncope, weakness. HTN pt has mild htn recently since taking INH Pt denies any chest pain or headache Pt states that her BP has been around 145/90 since two months ago. She started INH since 3 months ago. fatigue1 Pt has chronic f atigue. Pt had negative sleep study. Pt states that she feels that she can fall asleep around the afternoon time daily Pt denies any snoring Pt denies any morning fatigue. Pt has positive EBV IgG. glucose1 Pt has mild high glucose Pt denies any polyuria, polydipsia TB Pt has positive quantiferon TB test. ,Pt denies any night sweat, cough, sick contact ,fever recent travel. Pt denies any weight gain or loss. platelet her platelet clu mped during lab draw Pt denies any bruising or any bleeding. PHysical Pt needs annual physical Pt is 4 months . Pt just stopped breast feeding. Pt is on iron supplement now due to induced anemia Pt feels fatigue chronically but not as bad pt had negative sleep study Pt denies any chest pain or sob Pt states that she feels really fatigue in the middle of the day. Pt states that she wakes up feeling fine. fatigue1 Pt feels very fa tigue during the day. Pt make fall asleep frequently during the day. Pt does not have sleep apnea. Pt never tried adderall. Pt denies any depression abdominal 1 Pt states that s he no longer feels abdominal distension. pt denies any abdominal pain. Her LFT is ok. Pt did not do ultrasound. thyroid Pt has slightly suppressed tsh. Pt denies any chest pain or headache. her T4 is normal abd distension1 Pt states that s he thinks that her abdomen is more distended than uaual for the past year. Pt denies any abdominal pian. Pt denies any nauea, vomiting, diarrhea. Pt denies any bulging abdominal mass weight gain1 Pt gained 15 pepper nds duirng last 6 months. Pt denies any change in diet and activity level .Pt not sure why she keeps gaining weight. Pt has been diet and exercising fatigue1 Pt c/o feeling f atigue. Pt had negative sleep study. Pt did not try addreall Pt states that she was afraid of the side effects. Pt states that she has been taking b12 supplement and she actually feels more energy now. Pt denies any chest pain or sob fatigue1 Pt has chornic f atigue. Pt denies any sob or chest pain ,Pt denies any headache. Pt had negative sleep study. Pt had negative lab work. Although lab did miss the folate level. However, her folate level was ok last year. Pt states that she sleeps ok and she feels mild fatigue in the morning but most of her fatigue occur during early afternoon time. Pt feels very sleepy. Pt denies any depression or anxiety PHysical Pt need annual p hysical. pt states that she feels extremely fatigue and she may fall alseep anytime during the day for the past 6 months. Pt does not snore. Pt states that she may wake up once at night but she may go back to sleep quickly. Pt does not stop breathing at night. Pt states that she feels tired in the morning sometimes. Pt denies any any blood loss. Pt denies any chest pain or SOB. Pt denies any other complaints Physical Pt needs annual physical. Pt needs childcare physical. Pt takes OCP. Pt is very healthy .Pt does not takes any meds. Pt denies any physical illness. Pt deneis any chest pain, heaeache, coughing, etc Pt denies any other complaints Instructions Date Instruction Additional Infor mation Special diet education Related t o Body mass index (BMI) 25.0-25.9, adult Increase activity. Related to Es sential (primary) hypertension Follow a low sodium diet. Relate d to Essential (primary) hypertension Special diet education Related t o Body mass index (BMI) 25.0-25.9, adult Increase physical activity Relat ed to Fatigue Weight management Related to Fat igue Increase activity. Related to En cntr for general adult medical exam w/o abnormal findings Increase physical activity Relat ed to Abdominal distension Prescribed Diet Educ ation/Lifestyle Education Regarding Diet Related to Dietary Surveillance and Counseling Prescribed Activity and Exercise Education Related to Dietary Surveillance and Counseling Increase physical activity Relat ed to Fatigue Assessments Type Assessment Date assessment Acute laryngitis assessment Allergic rhinitis assessment GERD w/o esophagitis assessment Palpitations Mental Status Date Cognitive Assessment Orientation - [place] ed to time, place, person, situation.
--- OUTSIDE RECORDS SUMMARY | 2024-04-07 19:26 | XMS_ITS | Referral Summary ---
Author Organization [facility] Address [address] [place] [address] Care Team Providers Care Resident Assistant Cna Name Role Phone Wally Kumar MD Primary Care Provider [phone] Source Comments [facility],non-owned Affiliates and Associated Physician Practices is amultiple site organization consisting of ambulatory clinics and hospital sitesin [place], [place], [place] and [place]. This disclosure is being madepursuant to the Care Everywhere program and may not contain all information available regarding this patient. Last updated 17.[facility] Allergies No known active allergies Medications * Be aware that medications may not be up to date on this document. Alwaysverify current medications with the patient. Medication Sig Dispensed Refills Start Date End Date Status fluticasone propionate (FLONASE) 50 MCG/ACT nasal spray Terrell 2 sprays into the nose every 24 [...] 0.5 ML (IIV4) 12/10/2017 TDAP (7yrs+) 12/10/2017 Social History Tobacco Use Types Packs/Day Years [...] Comments Blood Pressure 127/86 02/18/2021 8:10 AM FURNITURE RENTAL CONSULTANT Pulse 77 02/18/2021 8:10 AM FURNITURE RENTAL CONSULTANT Temperature 37.9 C (100.3 F) 01/02/2021 4:50 PM FURNITURE RENTAL CONSULTANT Respiratory Rate 18 02/18/2021 8:10 AM FURNITURE RENTAL CONSULTANT Oxygen Saturation 100% 02/18/2021 8:10 AM FURNITURE RENTAL CONSULTANT Inhaled Oxygen Concentration - - Weight 60.3 kg (133 lb) 02/18/2021 8:10 AM FURNITURE RENTAL CONSULTANT Height 152.4 cm (5') 02/18/2021 8:10 AM FURNITURE RENTAL CONSULTANT Body Mass Index 25.97 02/18/2021 8:10 AM FURNITURE RENTAL CONSULTANT Plan of Treatment Not on file Care Teams Resident Assistant Cna Relationship Specialty Start Date End Date Wally Kumar MD PCP - General 02/10/18
--- OUTSIDE RECORDS SUMMARY | 2024-04-07 19:26 | XMS_ITS | Clinical Summary ---
Author Organization [facility] Care Team Providers Care Center Mgr Name Role Phone Unavailable Primary Care Provider Unavailabl e Social History Tobacco Use Types Packs/Day Years Used Date Smoking Tobacco: Never Assessed Comments Unknown Sex and Gender Information Value Date Recorded Sex Assigned at Not on file Legal Sex Female 3:01 PM [employer]ASKET[employer]ALL [employer] Gender Identity Not on file Sexual Orientation Not on file Plan of Treatment Health Maintenance Due Date Last Done Comments Hepatitis C Virus (HCV) Screening 1989 TdaP Immunization 1989 Hepatitis B Immunization (1 of 3 - 19+ 3-dose series) 2008 Pap Smear 2010 Cervical Cancer Screening (CCS) 07/17/2019 HPV/Cotest 07/17/2019 Influenza Immunization (#1) 2023 SARS-COV-2 Immunization ( season) 2023 Respiratory Syncytial Virus (RSV) Immunization (Adult) (1 - 1-dose 75+ series) 2064 Meningococcal Immunization (ACWY) Aged Out No longer eligible based on patient's age to complete this topic Pneumococcal Immunization Combined Aged Out No longer eligible based on patient's age to complete this topic Rotavirus Immunization Aged Out No lo nger eligible based on patient's age to complete this topic
--- OUTSIDE RECORDS SUMMARY | 2024-04-07 19:26 | XMS_ITS | Referral Summary ---
Author Organization [facility] Address [facility] [address] [place] [address] Care Team Providers Care Data Management Name Role Phone Wally Kumar MD Primary Care Provider Allergies No known active allergies Medications Lessina [...] wee Assessment & Plan (01/16/2018 8:59 AM ACCOUNT INFORMATION CLERK): Patient with appropriate interval growth today at [...] Microcephaly of fetus, fetus 1 12/02/2017 01/16/2018 Social History Tobacco Use Types Packs/Day Years [...] Plan of Treatment Not on file Insurance [facility] [employer] PL[employer] CHOICE PLUS [address] [place] [id number] Care Teams Data Management Relationship Specialty Start Date End Date Wally Kumar MD [address] [place] [address] PCP - General Family Medicine 04/26/19
--- OUTSIDE RECORDS SUMMARY | 2024-04-07 19:26 | XMS_ITS | Patient Health Summary ---
Author Organization [facility] Address [address] [place] [address] Care Team Providers Care Manager Operating Name Role Phone Wally Kumar MD Primary Care Provider [phone] Note from [facility],non-owned Affiliates and Associated Physician Practices is amultiple site organization consisting of ambulatory clinics and hospital sitesin [place], [place], [place] and [place]. This disclosure is being madepursuant to the Care Everywhere program and may not contain all information available regarding this patient. Last updated 17.[facility] Allergies No known active allergies Medications * Be aware that medications may not be up to date on this document. Alwaysverify current medications with the patient. * fluticasone propionate (FLONASE) 50 MCG/ACT nasal spray(Started 07/22/2020) [place] 2 sprays into the nose every 24 hours * LESSINA-28 0.1-20 MG-MCG tablet(Started 01/27/2021) Take 1 tablet by mouth once daily * omeprazole (PRILOSEC) 20 MG capsule(Started 02/18/2021) Take 1 (one) capsule by mouth 2 times daily, before breakfast and supper 3 refills by 02/18/2022 Active Problems Problem Noted Date Diagnosed Date Family history of sickle cell anemia 12/25/2017 Atypical squamous cells of u ndetermined significance (ASCUS) on Papanicolaou smear of cervix 07/21/2017 Immunizations * INFLUENZA VACCINE, QUADR. (FLUZONE; FLULAVAL; FLUARIX; AFLURIA QUADRIVALENT; 6MO+), 0.5 ML (IIV4)(Given 12/10/2017) * TDAP (7yrs+)(Given 12/10/2017) Social History Tobacco Use Types Packs/Day Years [...] Comments Blood Pressure 127/86 02/18/2021 8:10 AM CONTRACTING EXECUTIVE Pulse 77 02/18/2021 8:10 AM CONTRACTING EXECUTIVE Temperature 37.9 C (100.3 F) 01/02/2021 4:50 PM CONTRACTING EXECUTIVE Respiratory Rate 18 02/18/2021 8:10 AM CONTRACTING EXECUTIVE Oxygen Saturation 100% 02/18/2021 8:10 AM CONTRACTING EXECUTIVE Inhaled Oxygen Concentration - - Weight 60.3 kg (133 lb) 02/18/2021 8:10 AM CONTRACTING EXECUTIVE Height 152.4 cm (5') 02/18/2021 8:10 AM CONTRACTING EXECUTIVE Body Mass Index 25.97 02/18/2021 8:10 AM CONTRACTING EXECUTIVE Procedures * US ABDOMEN LIMITED(Performed 03/11/2021) Performed for Elevated liver enzymes * HELICOBACTER PYLORI ANTIGEN FECES(Performed 02/25/2021) Performed for Indigestion, Gastroesophageal reflux disease, unspecified whether esophagitis present * COMPREHENSIVE METABOLIC PANEL(Performed 02/23/2021) Performed for Indigestion, Gastroesophageal reflux disease, unspecified whether esophagitis present * CBC W AUTO DIFFERENTIAL(Performed 02/23/2021) Performed for Indigestion, Gastroesophageal reflux disease, unspecified whether esophagitis present * SARS-COV-2 (COVID-19) AG (AMB) POCT(Performed 01/02/2021) Performed for Acute sinusitis, recurrence not specified, unspecified location Results * US ABDOMEN LIMITED (03/11/2021 8:01 AM CONTRACTING EXECUTIVE) Anatomical Region Laterality Modality Abdomen Ultrasound 03/11/2021 7:46 AM CONTRACTING EXECUTIVE Impressions 03/11/2021 8:23 AM CONTRACTING EXECUTIVE IMPRESSION: 1.No discrete hepatic lesion or biliary dilatation. 2.No evidence of cholelithiasis or acute cholecystitis. Dictated by Ariel Mckenzie MD (radiology practitioner assistant). IDr. LISHA M.D. have personally reviewed and interpreted this examination/study. This report was electronically signed by LISHA BENITEZ M.D. on 03/11/2021 8:23 AM . Narrative 03/11/2021 8:23 AM CONTRACTING EXECUTIVE EXAM: Limited abdominal ultrasound HISTORY: R74.8: Elevated liver enzymes COMPARISON: No comparison images are available in the PACS system at the time of this dictation. FINDINGS: The liver is normal in echotexture and echogenicity with a smooth surface contour. No discrete hepatic mass or intrahepatic biliary dilatation is seen. Color Doppler evaluation demonstrates patency of the hepatic and portal veins. No gallstone or pericholecystic fluid is seen. The gallbladder wall measures 1.7 mm. Sonographic Dalton's sign is negative. The common bile duct measures 5 mm. The right kidney measures 9.4 x 3.8 x 3.5 cm. Limited views of the right kidney show no hydronephrosis, nephrolithiasis, or solid renal mass. The visible pancreas is normal in echogenicity. Incidental note of a borderline dilated main pancreatic duct in the pancreatic body, measuring 3 mm. The spleen measures 8 cm. No ascites is present. Procedure Note Lisha Benitez MD - 03/11/2021 EXAM: Limited abdominal ultrasound HISTORY: R74.8: Elevated liver enzymes COMPARISON: No comparison images are available in the PACS system at the time of this dictation. FINDINGS: The liver is normal in echotexture and echogenicity with a smoothsurface contour. No discrete hepatic mass or intrahepatic biliary dilatation is seen.Color Doppler evaluation demonstrates patency of the hepatic and portal veins. No gallstone or pericholecystic fluid is seen. The gallbladder wall measures 1.7 mm. Sonographic Dalton's sign is negative. The common bile duct measures 5 mm. The right kidney measures 9.4 x 3.8 x 3.5 cm. Limited views of the right kidney show no hydronephrosis, nephrolithiasis, or solid renal mass. The visible pancreas is normal in echogenicity. Incidental note of a borderline dilated main pancreatic duct in the pancreatic body,measuring 3 mm. The spleen measures 8 cm. No ascites is present. IMPRESSION: 1.No discrete hepatic lesion or biliary dilatation. 2.No evidence of cholelithiasis or acute cholecystitis. Dictated by Ariel Mckenzie MD (radiology practitioner assistant). I, Dr. LISHA BENITEZ M.D. have personally reviewed and interpreted this examination/study. This report was electronically signed by LISHA BENITEZ M.D. on 03/11/2021 8:23 AM . Lynda Burnett PA-C US ORDERABLES * HELICOBACTER PYLORI ANTIGEN FECES (02/25/2021 4:30 PM CONTRACTING EXECUTIVE) Helicobacter pylori Antigen Stool Negative Negative [facility] INSURANCE BILL Stool STOOL SPECIMEN / Unknown 02/25/2021 4:30 PM CONTRACTING EXECUTIVE 02/25/2021 Narrative Resulting Agency Comment Lab Testing performed at: [facility] [address] [id number] Lynda Burnett PA-C LAB - MICROBIOLOG Y ORDERABLES [facility] INSURANCE BILL [address] [place] [address] * CBC WITH DIFFERENTIAL (02/23/2021 3:28 PM CONTRACTING EXECUTIVE) WBC 6.8 3.4 - 10.8 x10E3/uL [facility] INSURANCE BILL RBC 4.67 3.77 - 5.28 x10E6/uL [facility] INSURANCE BILL Hemoglobin 14.3 11.1 - 15.9 g/dL [facility] INSURANCE BILL Hematocrit 41.7 34.0 - 46.6 % [facility] INSURANCE BILL MCV 89 79 - 97 fL [facility] INSURANCE BILL MCH 30.6 26.6 - 33.0 pg [facility] INSURANCE BILL MCHC 34.3 31.5 - 35.7 g/dL [facility] INSURANCE BILL RDW 12.5 11.7 - 15.4 % [facility] INSURANCE BILL Platelet Count 278 150 - 450 x10E3/uL [facility] INSURANCE BILL Granulocytes % 63 Not Estab. % [facility] INSURANCE BILL Lymphocytes % 28 Not Estab. % [facility] INSURANCE BILL Monocytes % 8 Not Estab. % [facility] INSURANCE BILL Eosinophils % 1 Not Estab. % [facility] INSURANCE BILL Basophils % 0 Not Estab. % [facility] INSURANCE BILL Immature Cells NOT NEEDED [facility] INSURANCE BILL Comment:Ancillary determined the test is not needed. Granulocytes Absolute 4.3 1.4 - 7.0 x10E3/uL [facility] INSURANCE BILL Lymphocytes Absolute 1.9 0.7 - 3.1 x10E3/uL [facility] INSURANCE BILL Monocytes Absolute 0.5 0.1 - 0.9 x10E3/uL [facility] INSURANCE BILL Eosinophils Absolute 0.1 0.0 - 0.4 x10E3/uL [facility] INSURANCE BILL Basophils Absolute 0.0 0.0 - 0.2 x10E3/uL [facility] INSURANCE BILL Immature Granulocytes 0 Not Estab. % [facility] INSURANCE BILL Immature Granulocytes Absolute 0.0 0.0 - 0.1 x10E3/uL [facility] INSURANCE BILL nRBC NOT NEEDED [facility] INSURANCE BILL Comment:Ancillary determined the test is not needed. Comment Hematology NOT NEEDED [facility] INSURANCE BILL Comment:Ancillary determined the test is not needed. Blood BLOOD SPECIMEN / Unknown 02/23/2021 3:28 PM CONTRACTING EXECUTIVE 02/23/2021 Narrative Resulting Agency Comment Lab Testing performed at: [facility] [address] [facility] [phone] Lynda Burnett PA-C LAB - HEMATOLOGY ORDERABLES [facility] INSURANCE BILL [address] [place] [address] * (ABNORMAL) COMPREHENSIVE METABOLIC PANEL (02/23/2021 3:28 PM CONTRACTING EXECUTIVE) Glucose 81 65 - 99 mg/dL [facility] INSURANCE BILL BUN 7 6 - 20 mg/dL [facility] INSURANCE BILL Creatinine 0.86 0.57 - 1.00 mg/dL [facility] INSURANCE BILL eGFR by MDRD 90 >59 mL/min/1. 73 [facility] INSURANCE BILL eGFR by MDRD 104 >59 mL/min/1. 73 [facility] INSURANCE BILL Comment: In accordance with recommendations from the NKF-ASN Task force, [facility] is in the process of updating its eGFR calculation to the 2020 CKD-EPI creatinine equation that estimates kidney function without a race variable. BUN/Creatinine Ratio 8(L) 9 - 23 [facility] INSURANCE BILL Sodium 141 134 - 144 mmol/L [facility] INSURANCE BILL Potassium 4.4 3.5 - 5.2 mmol/L [facility] INSURANCE BILL Chloride 104 96 - 106 mmol/L [facility] INSURANCE BILL CO2 22 20 - 29 mmol/L [facility] INSURANCE BILL Calcium 9.5 8.7 - 10.2 mg/dL [facility] INSURANCE BILL Protein Total 6.9 6.0 - 8.5 g/dL [facility] INSURANCE BILL Albumin 4.8 3.8 - 4.8 g/dL [facility] INSURANCE BILL Globulin Total 2.1 1.5 - 4.5 g/dL [facility] INSURANCE BILL Albumin/Globulin Ratio 2.3(H) 1.2 - 2.2 [facility] INSURANCE BILL Bilirubin Total 0.2 0.0 - 1.2 mg/dL [facility] INSURANCE BILL Alkaline Phosphatase 60 44 - 121 IU/L [facility] INSURANCE BILL Comment:Please note refere nce interval change AST 112(H) 0 - 40 IU/L [facility] INSURANCE BILL ALT 59(H) 0 - 32 IU/L [facility] INSURANCE BILL Blood BLOOD SPECIMEN / Unknown 02/23/2021 3:28 PM CONTRACTING EXECUTIVE 02/23/2021 Narrative Resulting Agency Comment Lab Testing performed at: [facility] [address] [facility] [id number] Lynda Burnett PA-C LAB - CHEMISTRY O RDERABLES [facility] INSURANCE BILL [address] [place] [address] * SARS-COV-2 (COVID-19) AG (AMB) POCT (01/02/2021 4:59 PM CONTRACTING EXECUTIVE) SARS-CoV-2 Ag Negative Negative [facility] Lot # [id number] [facility] Expiration Date 02/22/21 [facility] Instrument Serial Number [id number] [facility] COVID Internal Control Acceptable Acceptable [facility] Microbiology SPECIMEN FROM NASAL FOSSAE / Unknown 01/02/2021 4:59 PM CONTRACTING EXECUTIVE Brant Holtgrave OPTICAL INSTRUMENT SPECIALIST-LEATHER CLEANER LAB - POINT OF CARE ORDERABLES [facility] [address] [phone] Care Teams Manager Operating Relationship Specialty Start Date End Date Wally Kumar MD PCP - General 02/10/18
[2024-04-07 20:06] LABS: Basophils Percent Auto 0.1 % (0.2-1.2); Eosinophils Percent Auto 0.3 % (0-4.4); Hematocrit 33.8 % (37.0-47.0); Hemoglobin 11.4 g/dL (12.0-15.0); Immature Granulocyte Absolute 0.07 K/mm3 (0.00-0.031); Immature Granulocyte Percent A 0.5 % (0-0.5); Lymphocytes Absolute Auto 1.75 K/mm3 (0.9-3.2); Lymphocytes Percent Auto 13.6 % (18.3-44.2); Mean Corpuscular HGB Conc 33.7 g/dl (32-36); Mean Corpuscular Hemoglobin 28.4 pg (26-34); Mean Corpuscular Volume 84.1 fl (80-100); Mean Platelet Volume 12.1 fl (7.4-10.4); Monocytes Absolute Auto 0.9 K/mm3 (0.1-0.6); Monocytes Percent Auto 7.3 % (2.6-8.5); Neutrophils Absolute Auto 10.1 K/mm3 (1.3-6.7); Neutrophils Percent Auto 78.2 % (45.5-73.1); Platelet Count Result 195 k/mm3 (150-375); Red Blood Count 4.02 M/mm3 (4.2-5.4); Red Cell Distribution Width 12.9 % (11.5-14.5); White Blood Count 12.9 K/mm3 (4.5-10.0)
[2024-04-07] MEDS: fentaNYL CITRATE INJ (*CRX) 100 MCG/2 ML VIAL IV PUSH ×2 (20:15→21:15)
[2024-04-07] MEDS: LACTATED RINGERS 1,000 ML 125 ML IV CONT ×2 (20:15→22:02)
--- NOTE | 2024-04-07 20:17 | LDADM ---
This patient, Cira Vallejo, was admitted to Labor/Delivery/Recovery 105 on 04/07/24 at 19:14. Plans for labor, pain management and were discussed with patient. Patient/family oriented to hospital policies and general routines including ID bracelet, bed and alarms, visiting hours, pain management, procedures, bathroom and other care routines, personal items, smoking policy, room service/diet and guest tray routines, security routines, and visiting hours. Patient/Family are encouraged to report perceived risks to care and to ask questions if they do not understand what they are told or what they should do. See [facility] for further documentation.
[2024-04-07 20:48] LABS: Syphilis IgG/IgM Antibody Negative (Negative)
[2024-04-07 21:01] LABS: HIV 1/2 Ab P24 Ag Result Negative (Negative)
[2024-04-07 21:05] LABS: Alanine Aminotransferase 16 U/L (6-35); Albumin Level 3.6 g/dL (3.5-5.1); Alkaline Phosphatase 200 U/L (38-126); Anion Gap 12 mmol/L (4-12); Aspartate Amino Transferase 22 U/L (14-36); Bilirubin,Total 0.3 mg/dL (0.2-1.3); Blood Urea Nitrogen 10 mg/dL (7-17); Calcium 9.4 mg/dL (8.4-10.2); Carbon Dioxide 17 mmol/L (22-30); Chloride 106 mmol/L (98-107); Estimated Glomerular Filt Rate > 60; Glucose 140 mg/dL (65-110); Sodium 135 mmol/L (137-145); Uric Acid 4.3 mg/dL (2.5-7.5)
--- NOTE | 2024-04-07 21:38 | P.PNAN_ITS ---
Anes - Initial Pre Proc Eval Procedure: Labor Epidural Date/Time: 04/07/24 21:38 Surgeon: Dm Roche MD Pre Op Diagnosis: Labor Pain Pre Op Diagnosis: IOL Patient Data Age: 33 Gender: F Height: Weight: Last Vital Signs Pulse 72 04/07/24 21:30 BP 142/84 H 04/07/24 21:30 Pulse Ox 100 04/07/24 21:34 Allergies Allergy/AdvReac Type Severity Reaction Status Date / Time No Known Allergies Allergy Unknown Verified 03/03/24 14:22 Home Medications ?Medication ?Instructions ?Recorded ?Confirmed ?Type aspirin 81 mg capsule 81 mg PO DAILY 03/03/24 03/03/24 History vit no.95-ferrous 1 tablet PO DAILY 03/03/24 03/03/24 History fumarate 28 mg-folic acid 800 mcg tablet () Laboratory Tests 04/07/24 19:44 WBC 12.9 H K/mm3 (4.5-10.0) RBC 4.02 L M/mm3 (4.2-5.4) Hgb 11.4 L g/dL (12.0-15.0) Hct 33.8 L % (37.0-47.0) MCV 84.1 fl (80-100) MCH 28.4 pg (26-34) MCHC 33.7 g/dl (32-36) RDW 12.9 % (11.5-14.5) Plt Count 195 k/mm3 (150-375) MPV 12.1 H fl (7.4-10.4) Immature Gran % (Auto) 0.5 % (0-0.5) Neut % (Auto) 78.2 H % (45.5-73.1) Lymph % (Auto) 13.6 L % (18.3-44.2) [place] % (Auto) 7.3 % (2.6-8.5) Eos % (Auto) 0.3 % (0-4.4) Baso % (Auto) 0.1 L % (0.2-1.2) Lymph # (Auto) 1.75 K/mm3 (0.9-3.2) [place] # (Auto) 0.9 H K/mm3 (0.1-0.6) Eos # (Auto) 0.0 K/mm3 (0-0.3) Baso # (Auto) 0.0 K/mm3 (0.0-0.1) Abs Immat Gran (auto) 0.07 H K/mm3 (0.00-0.031) Absolute Neuts (auto) 10.1 H K/mm3 (1.3-6.7) Absolute Nucleated RBC 0.000 K/mm3 (0.0-0.012) Nucleated RBC % 0.0 % (0.0-0.2) Sodium 135 L mmol/L (137-145) Potassium 4.0 mmol/L (3.4-5.0) Chloride 106 mmol/L (98-107) Carbon Dioxide 17 L mmol/L (22-30) Anion Gap 12 mmol/L (4-12) BUN 10 mg/dL (7-17) Creatinine 0.81 mg/dL (0.7-1.0) Estim Creat Clear Calc Not Reportable Estimated GFR > 60 (59 - ) Glucose 140 H mg/dL (65-110) Uric Acid 4.3 mg/dL (2.5-7.5) Calcium 9.4 mg/dL (8.4-10.2) Total Bilirubin 0.3 mg/dL (0.2-1.3) AST 22 U/L (14-36) ALT 16 U/L (6-35) Alkaline Phosphatase 200 H U/L (38-126) Total Protein 7.0 g/dL (6.3-8.2) Albumin 3.6 g/dL (3.5-5.1) Syphilis IgG/IgM Ab Negative (Negative) HIV 1&2 Ab/P24 Ag 4thGn Negative (Negative) Blood Type O Negative Antibody Screen Negative Patient hx anesthesia problems: none Family hx anesthesia problems: none Results Review: All pre-operative results and documents have been reviewed as part of the pre- operative evaluation. [facility] Past Medical History Medical History BELLA on CPAP Family History Family History Other Unknown family medical history Social History Social History Smoking status: Never smoker Second hand tobacco smoke exposure: No Alcohol use details: WHEN NOT Substance use: never Substance use type: does not use Do You Feel Safe in your Home?: Yes Lack of Transportation: No Lack of Food: Never True Current Housing: I Have Housing Concerned About Future Housing: No Difficulty Paying Gas/Electric Bills: No Difficulty Paying for Meds: No Currently Unemployed: No Education: Master's Degree or Higher Difficulty w/ Childcare or Family Care: No Living arrangements: with family Spiritual care concerns: No Anes - Eval Final PreProcedure Day of Procedure 04/07/24 21:38 Patient weight: normal Heart: regular rate and rhythm Lungs: normal air movement Airway: Mallampati scale class II Neurological: alert and oriented Last oral intake: 4 hours ASA classification: II Emergent: no Anesthetic plan: proceed Anesthesia type and monitoring: regional Results Review: All pre-operative results and documents have been reviewed as part of the pre- operative evaluation. Informed Consent: The patient's anesthetic plan and its attendant risks and benefits were discussed with the patient/family/POA. Questions were solicited and answers prov ided to the satisfaction of the patient/family/POA.
[2024-04-08] VITALS (17 sets, daily range): BP systolic 106–132; BP diastolic 58–99; PULSE 71–171; RESP 16–18; TEMP 36.4–36.9; O2SAT 99–100
[2024-04-08] MEDS: OXYTOCIN 30 UNITS/NS 500 ML 30 UNITS/500 ML BAG 999 UNITS IV CONT (00:52)
--- NOTE | 2024-04-08 01:04 | PM.OBPRVD ---
OB - Vaginal Delivery Note Procedure Delivery date: 04/08/24 Induction method: None Delivery monitor: External FHT and External Uterine Route of delivery: Episiotomy description: Right Mediolateral (small 4 stitches) Delivery repair: vicryl Specimen: No Quantitative Blood Loss (ml): 80 Anesthesia type: Epidural Disposition: Floor Complications: No immediate complications Baby Date of : 04/08/24 Time of : 12:46 Gestational Age by Date: 40 gender: Female Weight (pounds): 7 Weight (ounces): 5 presentation: vertex position: Right Occiput Anterior Placenta delivery description: Spontaneous Cord Vessel Description: 3 Vessels score one minute: 8 score five minutes: 9 Narrative: dr oakes at bs to help with rotation, once baby OA, head remained undelivered, discussed with parents episiotomy as turtle sign observed and slow descent, episiotomy consent from patient and her . then pushed and baby delivered without difficulty
[2024-04-08] MEDS: OXYTOCIN 30 UNITS/NS 500 ML 30 UNITS/500 ML BAG 125 UNITS IV CONT (01:25)
[2024-04-08] MEDS: WITCH HAZEL 40 PADS 1 PAD TOPICAL (04:15)
[2024-04-08] MEDS: BENZOCAINE 20% AER SPR (*SP) 56 GM CAN 1 SPRAY TOPICAL (04:15)
--- NOTE | 2024-04-08 04:15 | OBPPTRN ---
Patient transferred to post room #285 via wheelchair. Support person present. Oriented to unit, room, information board, rooming in, admission packet and security measures. Patient verbalizes understanding.
[2024-04-08] MEDS: MULTIVIT/MIN/PREN/FOL AC/IRON TABLET 1 TAB PO (08:15)
--- NOTE | 2024-04-08 08:58 | OBPPTRN ---
Patient transferred to post room #285 via (wheelchair ). Support person present. Oriented to unit, room, information board, rooming in, admission packet and security measures. Patient verbalizes understanding.
[2024-04-08] MEDS: IBUPROFEN 600 MG TABLET PO ×2 (10:00→16:08)
--- NOTE | 2024-04-08 16:12 | WPDANLDPN2 ---
Anes-Prog Note L&D Date/Time: 04/08/24 16:12 Comfortable throughout: labor and delivery Neuraxial method: epidural Epidural/Spinal procedure site: clean & non-tender Neuro status: Neuro function grossly intact. Cardiovascular status: normal Respiratory status: normal Airway patency: baseline Mental status: baseline Post-Op hydration status: normal Vital Signs: Last Vital Signs Temp 97.6 F 04/08/24 08:00 Pulse 76 04/08/24 08:00 Resp 18 04/08/24 08:00 BP 107/63 04/08/24 08:00 Pulse Ox 100 04/08/24 08:00 O2 Del Method Room Air 04/08/24 08:00 Pain score (VAS): 0 I/O: Intake & Output 04/08/24 04/08/24 04/08/24 07:59 15:59 23:59 Output Total 50 Balance -50 Patient feedback: Patient satisfied with anesthetic care.
[2024-04-09 05:56] VITALS: BP 108/69; PULSE 79; RESP 16; TEMP 36.5; O2SAT 100
[2024-04-09] MEDS: MULTIVIT/MIN/PREN/FOL AC/IRON TABLET 1 TAB PO (07:05)
[2024-04-09 07:23] VITALS: BP 122/75; PULSE 66; RESP 16; TEMP 37.1; O2SAT 100
--- NOTE | 2024-04-09 07:40 | P.PNOB_ITS ---
OB - PN: Subj Subjective Date/time seen: 04/09/24 07:40 Interval history: PPD#1 Doing well, pain controlled Voiding without issue Tolerating general diet Breast/bottle feeding Ready for discharge today OB - PN: Obj Data Labs 04/07/24 19:44 04/07/24 19:44 OB - PN A/P Assessment and Plan (1) (spontaneous vaginal delivery): Code(s): O80 - Encounter for full-term uncomplicated delivery Status: Acute Plan day: 1 Plan: routine care and discharge home Time Spent With Patient Time: Total time spent is greater than 50% in coordination of care (as documented) at patient's floor/unit and/or counseling patient: Review of Systems 2 Review of Systems: All systems reviewed & are unremarkable except as noted in HPI and below Exam 2 Const: General: comfortable and no acute distress O rientation/consciousness: patient oriented x3 Resp: Effort & Inspection: normal respiratory effort
--- NOTE | 2024-04-09 07:42 | PM.OBDSVD ---
DS: Admitting Diagnosis Discharge Date 04/09/24 Admitting Diagnosis rupture of membranes DS: Discharge Diagnosis Discharge Diagnosis (1) (spontaneous vaginal delivery): Code(s): O80 - Encounter for full-term uncomplicated delivery Status: Acute OB - DS: Summary OB Procedures : None OB Procedures Intrapartum: Spontaneous Vag Delivery OB Procedures: : None Peripartum Data Episiotomy description: Right Mediolateral (small 4 stitches) Time Spent with Patient Time attestation: Total time spent providing and/or coordinating discharge services: Discharge Plan Discharge Attending physician on discharge: Dm Roche Discharging Clinician: Dm Roche Anticipated Discharge Date/Time: 04/09/24 07:41 Patient Disposition: Home, Self-Care Activity: may shower, as tolerated and pelvic rest Diet: as tolerated Patient Instructions: Antibiotic Form Patient Language: Kyrgyz Stand Alone Forms: General Discharge Information Follow-up/Referrals: Dm Roche MD [Physician] - 4 Weeks Discharge Medications: New docusate sodium 100 mg Capsule 100 mg PO BID PRN (Reason: Constipation) Qty: 60 0RF ibuprofen 600 mg Tablet 600 mg PO Q6H PRN (Reason: Cramping) Qty: 30 0RF Continued PNV cmb#95-ferrous fumarate-FA [] 28 mg iron- 800 mcg tablet 1 tablet PO DAILY Discontinued aspirin 81 mg capsule 81 mg PO DAILY Date of admission: 04/07/24 19:14 Primary Care Provider: PHYSICIAN,DELIVERY PROFESSIONAL Admitting Provider: Dm Roche Attending physician on admission: Dm Roche Condition: Stable
--- NOTE | 2024-04-09 10:00 | PC.NURSE ---
Mother called out for a feeding check in and baby was a little sleepy, so we partly undressed and she woke easily. Observed mother latching to the [right] breast in [cradle] position. [was] able to maintain an appropriate latch. Mother [complains of] nipple pain [ throughout feeding]. Encouraged mother to keep close to the breast in a deep latch and to correct the latch if baby gets shallow. Mother used a nipple shield at the beginning of with her last baby. We discussed risks/benefits and that if she feels like she wants to try the shield this time we can. If she has further nipple trauma or the nipple pain is worsening, the shield might be a good option for her. He nipples are short shanked. She also wants to initiate pumping. She has her own Vickie pump. Reviewed using the blue feeding sheet to record time and duration of feeding. Infant was being supplemented with formula because she had not had a void in life. She did finally void this morning so the painter and decorator wants mom to continue to supplement after each . Mother voiced understanding of the education shared, to call for assistance if the does not latch or if there is discomfort with . name/number on communication board. Reported to the Primary RN.
[2024-04-09 10:38] LABS: Hematocrit 32.4 % (37.0-47.0); Hemoglobin 10.6 g/dL (12.0-15.0)
[2024-04-09] MEDS: RHO(D) IMMUNE GLOBULIN 300 MCG/2 ML SYRINGE IM (13:11)
[2024-04-09 21:20] VITALS: BP 117/74; PULSE 69; RESP 16; TEMP 36.8; O2SAT 100
--- NOTE | 2024-04-10 07:09 | PC.NURSE ---
Introductions were made, then assessment was completed of mothers nipples. This RN was notified that had a bloody spit up and mothers nipples should be assessed. Upon assessment, mother states that her nipples are tender and sore. Blisters were noted bilaterally, with an open blister on the left nipple. Mother states that infants last feeding was on the left breast before the bloody spit up. Mother is currently using nipple cream. Additionally, a nipple shield was given to assist with healing the nipples. An assessment will be done with next feeding to observe latch. Mother agrees to call this RN with next feeding. Nipple shield pros/cons were discussed. Mother utilized a nipple shield with her previous as well and states that she is familiar with how use the shield. Reviewed good handwashing, cleaning the nipple shield and the appropriate way to apply and use as a tool. Reported to the Primary RN.
[2024-04-10 07:45] VITALS: BP 119/85; PULSE 75; RESP 14; TEMP 36.7; O2SAT 100
[2024-04-10] MEDS: DOCUSATE SODIUM 100 MG CAPSULE PO (07:49)
[2024-04-10] MEDS: MULTIVIT/MIN/PREN/FOL AC/IRON TABLET 1 TAB PO (07:49)
--- NOTE | 2024-04-10 08:12 | PC.NURSE ---
On 04/10/24, the student, Francine Shaw, provided care and completed [facility] documentation on this patient. I have reviewed the student's documentation and agree with the findings.
--- NOTE | 2024-04-10 10:18 | PC.NURSE ---
Assisted patient with applying nipple shield and latching infant. Infant was able to latch to the right breast in the cross cradle position with nipple shield in place. Mother denies pain. Discussed how to obtain a deeper latch and the importance of a deep latch with and without nipple shield. Mother informed that after 3 feedings with the nipple shield she should begin pumping after feedings. Mother has her personal breast pump at bedside and states understanding of information.
--- NOTE | 2024-04-10 12:57 | P.PNOB_ITS ---
OB - PN: Subj Subjective Date/time seen: 04/10/24 12:57 Interval history: PPD#2 Patient sleeping when visited, chart reviewed Ready for discharge home today OB - PN: Obj Data Labs 04/09/24 10:28 04/07/24 19:44 Labs: Laboratory Results - last 24 hr 04/08/24 04:32 Blood Type O Negative Antibody Screen TNP Screen Negative Baby's Blood Type B pos Baby's LETY Positive Doses of RhIg Required 1 OB - PN A/P Assessment and Plan (1) (spontaneous vaginal delivery): Code(s): O80 - Encounter for full-term uncomplicated delivery Status: Acute Plan day: 2 Plan: routine care and discharge home Time Spent With Patient Time: Total time spent is greater than 50% in coordination of care (as documented) at patient's floor/unit and/or counseling patient: Review of Systems 2 Review of Systems: All systems reviewed & are unremarkable except as noted in HPI and below Exam 2 Const: General: comfortable and no acute distress
[2024-04-11 09:36] VITALS: BP 132/72; PULSE 78; RESP 18; TEMP 36.8; O2SAT 100
== END 2024-04-10 14:01 | disposition home or self-care (01) | DRG 807 ==
LOC: ANHLDR 19:24 → ANHOB2 04-08 04:58
PROVIDERS: Advanced Practice Midwife; Admitting Provider Obstetrics & Gynecology; Visit Provider Obstetrics & Gynecology
DX: O77.0 Labor and delivery complicated by meconium in amniotic fluid (principal); Z37.0 Single live birth; Z3A.40 40 weeks gestation of pregnancy
CPT/HCPCS: 36415; 80053; 84550; 85014; 85018; 85025; 85461; 86593; 86703; 86850; 86900; 86901; 90384; A9270; G0432; J2590; J2790; J2795; J3010; J7120